=== PATIENT | male | born 1955 | race Caucasian/White ===

== ENCOUNTER 2025-02-25 10:45 | Emergency (ER) | payer MEDICARE, BC, SELFPAY ==
--- NOTE | ~2025-02-25 | US_ITS ---
EXAMINATION:US venous doppler LE LT INDICATION:History of DVT. TECHNIQUE: Multiple grayscale, color flow and Doppler images of the left lower extremity deep venous systems were obtained and reviewed. COMPARISON:No prior studies for comparison. FINDINGS: The common femoral, superficial femoral and popliteal veins demonstrate normal respiratory variation, augmentation and compressibility. Color flow is also seen within the posterior tibial, pe roneal, greater saphenous and profunda veins. IMPRESSION: 1: No lower extremity deep venous thrombosis. Reviewed, dictated and finalized at location A.
[2025-02-25 10:47] VITALS: BP 120/70; PULSE 71; RESP 16; TEMP 36.6; O2SAT 99
--- OUTSIDE RECORDS SUMMARY | 2025-02-25 12:09 | XMS_ITS | Clinical Summary ---
Author Organization [facility] Address [address] [place] [address] Phone Care Team Providers Care Podiatric Surgeon Name Role Phone Marcello Reyes MD Primary Care Provider [phone] Allergies Active Allergy Reactions Criticality Noted Date Comments Phenergan Plain 05/22/2012 Other reaction(s): Other (See Comments) Promethazine 10/19/2006 Other reaction(s): Myalgia, Other achy Other reaction(s): Myalgia achiness achiness Medications esomeprazole (NexIUM) 40 mg capsule daily. 4 Active ferrous sulfate 325 mg (65 mg iron) tablet Prn 4 Active multivitamin (THERAGRAN) tablet tablet Take 1 tablet by mouth daily. Active Stelara injection 1 Active insulin syringe-needle U-100 (BD Insulin Syringe) 1 mL 25 gauge x 5/8 syringe USE ONE MONTHLY FOR SUBCUTANEOUS VITAMIN B12 INJECTIONS 0 Active predniSONE (DELTASONE) 10 mg tablet 1 Active cyanocobalamin 1,000 mcg/mL injection Inject 1,000 mcg under the skin. 1 Active ondansetron (ZOFRAN) 4 mg tablet Take 4 mg by mouth every 6 (six) hours as needed. 1 Active levothyroxine (SYNTHROID) 25 mcg tablet Take 1 tablet (25 mcg total) by mouth daily. 3 Active amoxicillin-pot clavulanate (AUGMENTIN) 875-125 mg per tablet TAKE 1 TAB BY MOUTH TWICE DAILY X1 WEEK FOR SINUSITIS 3 Active cefuroxime (CEFTIN) 250 mg tablet Take 1 tablet (250 mg total) by mouth. 3 Active omega-3 fatty acids-fish oil 340-1,000 mg capsule Take 1 capsule by mouth 2 times daily. Active co-enzyme Q-10 30 mg capsule Take 3 capsules (90 mg total) by mouth daily. Active olmesartan (BENICAR) 20 mg tablet Take 1 tablet (20 mg total) by mouth. 5 Active Active Problems Problem Noted Date Diagnosed Date Pterygium of both eyes 09/05/2024 Assessment & Plan (09/05/2024 2:40 PM PST): Recommend UV protection with sunglasses and hat outdoors, lubrication PRN irritation, and avoidance of wind and dust to prevent progression. MGD (meibomian gland disease) 09/05/2024 Assessment & Plan (09/05/2024 2:42 PM PST): Symptomatic with intermittent blurry vision improved with blinking. Start artificial tears 2-4x/day for both eyes. Discussed warm compresses and lid hygiene. Return in 1 year CEX. Gastroenteritis 07/28/2021 Nuclear sclerosis of both eyes 06/11/2020 Assessment & Plan (09/05/2024 2:40 PM PST): Mild. UV protection outdoors. Advised to observe the cataract until it starts to affect vision to a degree that it affects day to day functioning. Assessment & Plan (07/18/2023 3:03 PM PST): Observe. Pt educated on importance of sunglass wear when outdoors. RTC 1yr CEX Assessment & Plan (06/11/2021 11:41 AM PDT): Observe. Pt educated on importance of sunglass wear when outdoors. RTC 1yr CEX Assessment & Plan (06/11/2020 3:58 PM PST): Observe. Pt educated on importance of sunglass wear when outdoors. RTC 1yr CEX Astigmatism with presbyopia, bilateral 0 Assessment & Plan (09/05/2024 2:35 PM PST): Stable. Assessment & Plan (07/18/2023 3:03 PM PST): Pt given updated spec Rx. Pt educated on 2w adaptation period. RTC 1yr CEX Assessment & Plan (09/07/2021 11:59 AM PST): Pt given updated Rx. 's redo. Pt advised to wear specs full-time for 2w for adaptation. RTC if symptoms worsen or do not resolve. Lowering seg height and changing left eye astigmatism back to original Assessment & Plan (06/11/2021 11:41 AM PDT): Pt given updated spec Rx. Pt educated on 2w adaptation period. RTC 1yr CEX Assessment & Plan (06/11/2020 3:58 PM PST): Pt given updated spec Rx. Pt educated on 2w adaptation period. RTC 1yr CEX Gastroesophageal reflux disease 08/13/2013 Crohn's disease 08/09/2004 Overview (06/11/2020): Present for many years- is status post loop ileostomy. On Remicade for treatment- sees Gastroenterology in [facility]. Diagnosed since 1973.Duodenal resection for portal hypertensive enteropathy in 1979, ileal resection, small bowel strictureplasty for obstruction in 1989, lysis of adhesions and loop ileostomy for ileal stricture in 2000. The ileal stricture was not resected due to bleeding due to portal hypertensive enteropathy. Small bowel resection at the site of ileostomy and separate terminal ileal resection, plus right colon resection with an ileotransverse colostomy and creation of a new diverting loop ileostomy by Dr. Miky Fletcher in January 2008 was done at the [facility]. He had a total of 86.8 cm of small bowel removed. Reversal of the loop ileostomy was done in April 2009, with an additional 4 cm of small bowel resected, for a total of 90.8 cm of small bowel resected. Medication Hx: prednisone, 6-mercaptopurine (d'c'd due to leukopenia), Remicade (2001, 5mg/kg every eight weeks) Has problems with bacterial overgrowth, on rotating antibiotics for the past two years including Bactrim, tetracycline, Cipro, and Flagyl, rotating every week. Last colonoscopy was in September 2008 which showed anastomosis in the colon with only a single ulcer in the ileum, otherwise without any active disease. Last Assessment & Plan: Endoscopic and clinical remission on Remicade on a rotational antibiotics course small bowel bacteria overgrowth. Continue Remicade 5 mg/kilogram every 8 weeks. Discontinue Flagyl, continue three-week rotation of Bactrim DS, Cipro, and tetracycline. Begin trial of VSL#3. Continue Nexium continue weekly B12 injections. Routine followup in 6 months. IMO Update Encounters Date Type Department Care Team Description 12/11/2024 11:15 AM PDT Office Visit [facility] [address] [place] [phone] Mauri Vogel, Intervertebral disc disorder with radiculopathy of lumbosacral region (Primary Dx); Spondylosis of lumbar spine; Spondylosis of cervical spine; Degeneration of intervertebral disc of lumbar region with lower extremity pain from Last 3 Months Immunizations Immunization Administration Dates Next Due H1N1 Inj 07/16/2009 Influenza High Dose Preserva tive Free IM 05/17/2021 Influenza TIV (IM) 08/16/2013, 4,07/16/2009,06/04 Influenza, Injectable, 0.7 m l, Quadrivalent, PF 06/21/2022,05/17/2021 Influenza, Injectable, Quadr ivalent, Preservative Free 06/22/2020,06/06/2016 Pneumococcal Polysaccharide 07/14/2008 RSV Vaccine,recombinant,prot ein subunit(Arexvy) 08/01/2023 TD (Adult) Adsorbed, Preservative Free 9 Tdap 09/29/2022 Social History Tobacco Use Types Packs/Day Years Used Date Smoking Tobacco: Never Passive Smoke Exposure: Never Smokeless Tobacco: Never Tobacco Cessation:Counseling Given: Yes Alcohol Use Standard Drinks/Week Comments Yes 0 (1 standard drink = 0.6 oz pur e alcohol) Sex and Gender Information Value Date Recorded Sex Assigned at Not on file Legal Sex Male 10:32 AM PDT Gender Identity Not on file Sexual Orientation Not on file Last Filed Vital Signs Vital Sign Reading Time Taken Comments Blood Pressure - - Pulse - - Temperature - - Respiratory Rate - - Oxygen Saturation - - Inhaled Oxygen Concentration - - Weight 82.1 kg (181 lb) 12/11/2024 11:04 AM PDT Height 175.3 cm (5' 9) 12/11/2024 11:04 AM PDT Body Mass Index 26.73 12/11/2024 11:04 AM PDT Plan of Treatment Upcoming Encounters Date Type Department Care Team (Late st Contact Info) Description 09/11/2025 8:40 AM PST Office Visit [facility] [place] [address] [place] [address] [place] [phone] Tomas Jordan MD [address] [address] Health Maintenance Due Date Last Done Comments Annual Wellness Visit (AWV) for Medicare Part B or Non [employer] Advantage 1955 Hepatitis C Screening 1955 Zoster Vaccines (1 of 2) 12/18/1974 COVID-19 Vaccine (3 - season) 2024 06/15/2021, 11/12/2020 Influenza Vaccine (#1) 2025 , 05/17/2024, 06/21/2022, Additional history exists DTaP,Tdap,and Td Vaccines (2 - Td or Tdap) 09/29/2032 09/29/2022, 06/19/2009 Pneumococcal Vaccine: 65+ Years Completed 07/26/2021, 07/14/2008 HIB Vaccines Aged Out No longer eligi ble based on patient's age to complete this topic Hepatitis A Vaccines Aged Out No long er eligible based on patient's age to complete this topic Meningococcal ACWY Vaccine Aged Out N o longer eligible based on patient's age to complete this topic Meningococcal B Vaccine Aged Out No l onger eligible based on patient's age to complete this topic Polio Vaccines Aged Out No longer rohith gible based on patient's age to complete this topic Insurance ANTH [employer] VISION SERVICE PLAN MEDICARE PART A AND B [facility] P[facility] MEDICARE PART A AND B [facility] AN[facility] [employer] VISION SERVICE PLAN MEDICARE PART A AND B ANTH [facility]ISION C[facility] Care Teams Podiatric Surgeon Relationship Specialty Start Date End Date Marcello Reyes MD [address] [facility] [address] [id number] PCP - General Internal Medicine 07/18/23
--- OUTSIDE RECORDS SUMMARY | 2025-02-25 12:09 | XMS_ITS | Data Portability ---
Author Organization Kash Holloway, Main Office Address [address] [facility] [address] [place] [address] Assessment No assessment recorded. Plan of Treatment Reminders Order Date Submit Date Provider Last Modified By Organization Details Last Modified Time Details Appointments ANY 15 2024 09:45A M Kash Wills MD Not available Not available Not available Follow up 2024 10:30A M Kash Wills MD Not available Not available Not available Lab None recorded. Referral None recorded. Procedures None recorded. Surgeries None recorded. Imaging None recorded. Medication Orders Zanaflex 4 mg tablet 2024 025 [email or web address] [id number], [address] [place], [address], 01/17/2025 11:32:42 nystatin 100,000 unit/mL oral suspensio n 2024 025 LETTY [id number], [address] [place], [address], 12/05/2024 13:07:16 Patient TargetsNo targets recorded. Patient InstructionsNo instructions recorded. Reason for Referral None Reported. Results Created Date Observation Date Name Description Value Unit Range Abnormal Flag Note LastModifiedBy Organization Detail LastModifiedTime 11/29/1911/28/2024 CBC WBC 7.8 K/uL 5.0-9. 5 Not Available [facility] [address] [facility], [place], [address], 11/29/2024 20:37:53 11/29/1911/28/2024 CBC RBC 4.17 M/uL 3.70-5 .50 Not Available [address], [place], [address], 11/29/2024 20:37:53 11/29/19 25 11/28/2024 CBC HGB 14.2 gm/dL 13.0-1 7.0 Not Available [address], [address], 11/29/2024 20:37:53 11/29/19 25 11/28/2024 CBC HCT 41.8 % 38.0-5 0.0 Not Available [address], [address], 11/29/2024 20:37:53 11/29/19 25 11/28/2024 CBC MCV 100.3 fL 80.0-9 9.0 high Not Available [address], [place], [address], 11/29/2024 20:37:53 11/29/19 25 11/28/2024 CBC MCH 34.1 pg 27.0-3 3.0 high Not Available [address], [address], 11/29/2024 20:37:53 11/29/19 25 11/28/2024 CBC MCHC 34.0 gm/dL 31.8-3 6.2 Not Available [address], [address], 11/29/2024 20:37:53 11/29/1911/28/2024 CBC RDW 14.6 % 10.0-1 6.4 Not Available [address], [address], 11/29/2024 20:37:53 11/29/19 25 11/28/2024 CBC plt 142 K/uL 150-45 0 low Not Available [address], [place], [address], 11/29/2024 20:37:53 11/29/19 25 11/28/2024 CBC MPV 9.1 fL 7.5-10 .5 Not Available [address], [place], [address], 11/29/2024 20:37:53 11/29/1911/28/2024 CBC sex assigned at M Not Available [address], [place], [address], 11/29/2024 20:37:53 11/29/19 25 11/28/2024 AUTOD IFF* auto neutrophil percent 72.3 % 49.4-7 2.6 Not Available [address], [place], [address], 11/29/2024 20:37:54 11/29/19 25 11/28/2024 AUTOD IFF* auto neutrophil absolute 5.7 K/uL 2.0-6. 4 Not Available [address], [place], [address], 11/29/2024 20:37:54 11/29/1911/28/2024 AUTOD IFF* auto lymphocyte percent 18.4 % 18.0-4 0.0 Not Available [address], [place], [address], 11/29/2024 20:37:54 11/29/19 25 11/28/2024 AUTOD IFF* auto lymphocyte absolute 1.4 K/uL 1.5-3. 0 low Not Available [address], [place], [address], 11/29/2024 20:37:54 11/29/19 25 11/28/2024 AUTOD IFF* auto monocyte percent 8.5 % 4.9-10 .1 Not Available [address], [place], [address], 11/29/2024 20:37:54 11/29/19 25 11/28/2024 AUTOD IFF* auto monocyte absolute 0.7 K/uL 0.3-0. 8 Not Available [address], [place], [address], 11/29/2024 20:37:54 11/29/19 25 11/28/2024 AUTOD IFF* auto eosinophil percent 0.6 % 0.0-5. 0 Not Available [address], [place], [address], 11/29/2024 20:37:54 11/29/19 25 11/28/2024 AUTOD IFF* auto eosinophil absolute 0.0 K/uL 0.0-0. 4 Not Available [address], [place], [address], 11/29/2024 20:37:54 11/29/19 25 11/28/2024 AUTOD IFF* auto basophil percent 0.2 % 0.2-1. 2 Not Available [address] [place], [address], 11/29/2024 20:37:54 11/29/19 25 11/28/2024 AUTOD IFF* auto basophil absolute 0.0 K/uL 0.0-0. 1 Not Available [address] [place], [address], 11/29/2024 20:37:54 11/29/19 25 11/28/2024 AUTOD IFF* sex assigned at M Not Available [address], [place], [address], 11/29/2024 20:37:54 11/29/19 25 11/28/2024 CMP sodium level 140 mmol/ L 134-14 3 Not Available [address], [place], [address], 11/29/2024 20:37:54 11/29/19 25 11/28/2024 CMP potassium level 4.3 mmol/ L 3.5-5. 1 Not Available [address], [place], [address], 11/29/2024 20:37:54 11/29/19 25 11/28/2024 CMP chloride level 105 mmol/ L 101-11 1 Not Available [address], [place], [address], 11/29/2024 20:37:54 11/29/19 25 11/28/2024 CMP CO2/carbon dioxide 28 mmol/ L 22-32 Not Available [address], [place], [address], 11/29/2024 20:37:54 11/29/19 25 11/28/2024 CMP anion gap 7 mmol/ L 11-22 low Not Available [address], [place], [address], 11/29/2024 20:37:54 11/29/19 25 11/28/2024 CMP glucose, random 90 mg/dL 70-140 Not Available [address], [place], [address], 11/29/2024 20:37:54 11/29/19 25 11/28/2024 CMP BUN 25 mg/dL 4-20 high Not Available [address], [place], [address], 11/29/2024 20:37:54 11/29/19 25 11/28/2024 CMP creatinine 1.2 mg/dL 0.7-1. 3 Not Available [address], [place], [address], 11/29/2024 20:37:54 11/29/19 25 11/28/2024 CMP BUN/creat ratio 21 12-20 high Not Available [address], [place], [address], 11/29/2024 20:37:54 11/29/19 25 11/28/2024 CMP osmolality, calculated 294 mOsm/ kg 278-29 8 Not Available [address], [place], [address], 11/29/2024 20:37:54 11/29/19 25 11/28/2024 CMP calcium level 9.1 mg/dL 8.3-10 .3 Not Available [address], [place], [address], 11/29/2024 20:37:54 11/29/19 25 11/28/2024 CMP total protein 6.3 gm/dL 6.4-8. 9 low Not Available [address], [place], [address], 11/29/2024 20:37:54 11/29/19 25 11/28/2024 CMP albumin level 4.3 gm/dL 3.5-5. 3 Not Available [address], [place], [address], 11/29/2024 20:37:54 11/29/19 25 11/28/2024 CMP globulin level 2.0 gm/dL 2.3-3. 5 low Not Available [address], [place], [address], 11/29/2024 20:37:54 11/29/19 25 11/28/2024 CMP A/G ratio 2.2 0.7-2. 2 Not Available [address], [place], [address], 11/29/2024 20:37:54 11/29/19 25 11/28/2024 CMP ALP 40 intun it/L 56-119 low Not Available [address], [place], [address], 11/29/2024 20:37:54 11/29/19 25 11/28/2024 CMP ALT 22 intun it/L 7-52 Not Available [address], [place], [address], 11/29/2024 20:37:54 11/29/19 25 11/28/2024 CMP AST 16 intun it/L 10-39 Not Available [address], [place], [address], 11/29/2024 20:37:54 11/29/19 25 11/28/2024 CMP bilirubin, total 0.7 mg/dL 0.3-1. 2 Not Available [address], [place], [address], 11/29/2024 20:37:54 11/29/19 25 11/28/2024 CMP eGFR 63 mL/mi n/1.7 3m2 This eGFR equat ion utili zes the 2020 CKD-E PI creat inine equat ion. Stage s GFR None or sligh t 1 >90 ml/mi n Mild 2 60-89 ml/mi n Moder ate 3 30-59 ml/mi n Sever e 4 15-29 ml/mi n Appro achin g Failu re 5 <15 ml/mi n Not Available [address], [place], [address], 11/29/2024 20:37:54 11/29/19 25 11/28/2024 CMP sex assigned at M Not Available [place] [id number], [place], [address], 11/29/2024 20:37:54 11/29/19 25 11/28/2024 LIPID P total cholesterol 228 mg/dL 00-199 high Not Available [address], [place], [address], 11/29/2024 20:37:55 11/29/19 25 11/28/2024 LIPID P triglyceride s 169 mg/dL 0-149 high Not Available [address], [place], [address], 11/29/2024 20:37:55 11/29/19 25 11/28/2024 LIPID P HDL cholesterol 69 mg/dL 23-92 Not Available [address], [place], [address], 11/29/2024 20:37:55 11/29/19 25 11/28/2024 LIPID P LDL cholesterol, calc 125 mg/dL 0-99 high Not Available [address], [place], [address], 11/29/2024 20:37:55 11/29/19 25 11/28/2024 LIPID P total chol/HDL ratio 3.3 Not Available [address], [place], [address], 11/29/2024 20:37:55 11/29/19 25 11/28/2024 LIPID P LDL/HDL ratio 1.8 Not Available [address], [place], [address], 11/29/2024 20:37:55 11/29/19 25 11/28/2024 LIPID P sex assigned at M Not Available [address], [address], 11/29/2024 20:37:55 11/29/19 25 11/28/2024 LIPID P VLDL cholesterol, calc 34 mg/dL 0-40 Not Available [address], [address], 11/29/2024 20:37:55 11/29/19 25 11/28/2024 MIGUEL TIN ferritin level 99.7 NG/mL 14.0-2 93.0 Not Available [address], [address], 11/29/2024 20:37:55 11/29/19 25 11/28/2024 MIGUEL TIN sex assigned at M Not Available [address], [address], 11/29/2024 20:37:55 11/29/1911/28/2024 FOLAT E folate level 15.9 NG/mL 3.0-14 .4 high Folat e range s are as liste d below : Julianne l > 3.0 ng/mL Inter media te 2.5-3 .0 ng/mL Defic ient < 2.5 ng/mL Not Available [address], [address], 11/29/2024 20:37:55 11/29/1911/28/2024 FOLAT E sex assigned at M Not Available [address], [address], 11/29/2024 20:37:55 11/29/19 25 11/28/2024 VITB1 2 vitamin B12 level 343 pg/mL 180-91 4 Not Available [address], [address], 11/29/2024 20:37:56 11/29/19 25 11/28/2024 VITB1 2 sex assigned at M Not Available [address], [address], 11/29/2024 20:37:56 11/29/19 25 11/28/2024 TSH3 TSH thyroid stim hormone 3rd generation 2.19 uint_ unit/ mL 0.45-5 .33 Not Available [address], [address], 11/29/2024 20:37:56 11/29/19 25 11/28/2024 TSH3 sex assigned at M Not Available [address], [address], 11/29/2024 20:37:56 11/29/19 25 11/28/2024 PSAA SCRN PSA prostatic specific antigen screen 0.79 NG/mL 0.01-4 .00 The metho dolog y used for this assay is the [employer] s Hybri tech PSA immun oassa y. Not Available [address], [address], 11/29/2024 20:37:57 11/29/19 25 11/28/2024 PSAA SCRN sex assigned at M Not Available [address], [address], 11/29/2024 20:37:57 11/29/19 25 11/28/2024 VITD2 5 vitamin D, 25-hydroxy 36.0 NG/mL >=30.0 RESUL T INTER PRETA TION <20 ng/mL Defic ient 20-30 ng/mL Inade quate >30 ng/mL Adequ ate >150 ng/mL Possi ble Toxic ity >20 ng/mL Pedia tric Adequ ate (1-17 yrs) Not Available [address], [place], [address], 11/29/2024 20:37:57 11/29/19 25 11/28/2024 VITD2 5 sex assigned at M Not Available [address] [place], [address], 11/29/2024 20:37:57 01/07/20 25 01/06/2025 HGM WBC 5.1 K/uL 5.0-9. 5 Not Available [address], [place], [address], 01/07/2025 22:29:52 01/07/20 25 01/06/2025 HGM RBC 4.00 M/uL 3.70-5 .50 Not Available [address], [place], [address], 01/07/2025 22:29:52 01/07/2001/06/2025 HGM HGB 13.2 gm/dL 13.0-1 7.0 Not Available [address], [place], [address], 01/07/2025 22:29:52 01/07/2001/06/2025 HGM HCT 39.1 % 38.0-5 0.0 Not Available [address], [place], [address], 01/07/2025 22:29:52 01/07/2001/06/2025 HGM MCV 97.6 fL 80.0-9 9.0 Not Available [address], [place], [address], 01/07/2025 22:29:52 01/07/20 25 01/06/2025 HGM MCH 32.9 pg 27.0-3 3.0 Not Available [address], [place], [address], 01/07/2025 22:29:52 01/07/20 25 01/06/2025 HGM MCHC 33.7 gm/dL 31.8-3 6.2 Not Available [address], [place], [address], 01/07/2025 22:29:52 01/07/20 25 01/06/2025 HGM RDW 14.7 % 10.0-1 6.4 Not Available [address], [place], [address], 01/07/2025 22:29:52 01/07/20 25 01/06/2025 HGM plt 167 K/uL 150-45 0 Not Available [address], [place], [address], 01/07/2025 22:29:52 01/07/20 25 01/06/2025 HGM MPV 9.1 fL 7.5-10 .5 Not Available [address], [place], [address], 01/07/2025 22:29:52 01/07/20 25 01/06/2025 HGM sex assigned at M Not Available [address], [place], [address], 01/07/2025 22:29:52 01/07/20 25 01/06/2025 CMP sodium level 139 mmol/ L 134-14 3 Not Available [address], [place], [address], 01/07/2025 22:29:53 01/07/20 25 01/06/2025 CMP potassium level 4.7 mmol/ L 3.5-5. 1 Not Available [address] [place], [address], 01/07/2025 22:29:53 01/07/20 25 01/06/2025 CMP chloride level 103 mmol/ L 101-11 1 Not Available [address] [place], [address], 01/07/2025 22:29:53 01/07/20 25 01/06/2025 CMP CO2/carbon dioxide 30 mmol/ L 22-32 Not Available [address], [place], [address], 01/07/2025 22:29:53 01/07/20 25 01/06/2025 CMP anion gap 6 mmol/ L 11-22 low Not Available [address], [place], [address], 01/07/2025 22:29:53 01/07/20 25 01/06/2025 CMP glucose, random 82 mg/dL 70-140 Not Available [address], [place], [address], 01/07/2025 22:29:53 01/07/20 25 01/06/2025 CMP BUN 14 mg/dL 4-20 Not Available [address], [place], [address], 01/07/2025 22:29:53 01/07/20 25 01/06/2025 CMP creatinine 1.3 mg/dL 0.7-1. 3 Not Available [address], [place], [address], 01/07/2025 22:29:53 01/07/20 25 01/06/2025 CMP BUN/creat ratio 11 12-20 low Not Available [address], [place], [address], 01/07/2025 22:29:53 01/07/20 25 01/06/2025 CMP osmolality, calculated 288 mOsm/ kg 278-29 8 Not Available [address], [place], [address], 01/07/2025 22:29:53 01/07/20 25 01/06/2025 CMP calcium level 9.3 mg/dL 8.3-10 .3 Not Available [address], [place], [address], 01/07/2025 22:29:53 01/07/20 25 01/06/2025 CMP total protein 6.0 gm/dL 6.4-8. 9 low Not Available [address], [place], [address], 01/07/2025 22:29:53 01/07/20 25 01/06/2025 CMP albumin level 4.1 gm/dL 3.5-5. 3 Not Available [address], [place], [address], 01/07/2025 22:29:53 01/07/20 25 01/06/2025 CMP globulin level 1.9 gm/dL 2.3-3. 5 low Not Available [address], [place], [address], 01/07/2025 22:29:53 01/07/20 25 01/06/2025 CMP A/G ratio 2.2 0.7-2. 2 Not Available [address], [place], [address], 01/07/2025 22:29:53 01/07/20 25 01/06/2025 CMP ALP 44 intun it/L 56-119 low Not Available [address], [place], [address], 01/07/2025 22:29:53 01/07/20 25 01/06/2025 CMP ALT 18 intun it/L 7-52 Not Available [address], [place], [address], 01/07/2025 22:29:53 01/07/20 25 01/06/2025 CMP AST 17 intun it/L 10-39 Not Available [address], [place], [address], 01/07/2025 22:29:53 01/07/20 25 01/06/2025 CMP bilirubin, total 0.6 mg/dL 0.3-1. 2 Not Available [address], [place], [address], 01/07/2025 22:29:53 01/07/20 25 01/06/2025 CMP eGFR 57 mL/mi n/1.7 3m2 This eGFR equat ion utili zes the 2020 CKD-E PI creat inine equat ion. Stage s GFR None or sligh t 1 >90 ml/mi n Mild 2 60-89 ml/mi n Moder ate 3 30-59 ml/mi n Sever e 4 15-29 ml/mi n Appro achin g Failu re 5 <15 ml/mi n Not Available [address], [place], [address], 01/07/2025 22:29:53 01/07/20 25 01/06/2025 CMP sex assigned at M Not Available [address], [place], [address], 01/07/2025 22:29:53 01/07/20 25 01/06/2025 LIPID P total cholesterol 202 mg/dL 00-199 high Not Available [address], [place], [address], 01/07/2025 22:29:53 01/07/20 25 01/06/2025 LIPID P triglyceride s 155 mg/dL 0-149 high Not Available [facility] [address], [place], [address], 01/07/2025 22:29:53 01/07/20 25 01/06/2025 LIPID P HDL cholesterol 56 mg/dL 23-92 Not Available [address], [place], [address], 01/07/2025 22:29:53 01/07/20 25 01/06/2025 LIPID P LDL cholesterol, calc 115 mg/dL 0-99 high Not Available [facility] [address], [place], [address], 01/07/2025 22:29:53 01/07/20 25 01/06/2025 LIPID P total chol/HDL ratio 3.6 Not Available [address], [place], [address], 01/07/2025 22:29:53 01/07/20 25 01/06/2025 LIPID P LDL/HDL ratio 2.0 Not Available [address], [place], [address], 01/07/2025 22:29:53 01/07/20 25 01/06/2025 LIPID P sex assigned at M Not Available [place] [address], [place], [address], 01/07/2025 22:29:53 01/07/20 25 01/06/2025 LIPID P VLDL cholesterol, calc 31 mg/dL 0-40 Not Available [address], [place], [address], 01/07/2025 22:29:53 01/07/20 25 01/06/2025 DOM LOPEZ cortisol, serum 5.4 6 a.m. - 10 a.m. refer ence inter v6 a.m. - 10 a.m. refer ence inter vipul: 6.0-1 8.4 ?g/dL 4 p.m. - 8 p.m. refer ence inter vipul: 2.7-1 0.5 ?g/dL Not Available [address] [place], [address], 01/07/2025 22:29:54 01/07/2001/06/2025 LIATYashira JESSICA sex assigned at M Not Available [address] [place], [address], 01/07/2025 22:29:54 12/17/19 25 11/29/2024 US, carowilliam id arter y No observ ation record ed. [email or web address] Not Available 2024 22:49:13 Result Notes None recorded. Problems Name Problem SNOMED Code Status Onset Date Resolution Date Notes Provider Name and Address Organization Details Recorded Time Iron deficienc y anemia 96796341 Active 2020 Iron deficienc y anemia Not Available [facility] 5 01:17:22 History of anemia vitamin B12 deficient 388149487 Active 2020 History of anemia vitamin B12 deficient Not Available [facility] 5 01:17:23 Thrombosi s of mesenteri c vein 59823467 Active 2020 Thrombosi s of mesenteri c vein Not Available [facility] 5 01:17:23 Squamous cell carcinoma of skin 492689007 Active 2020 Cutaneous squamous cell carcinoma Not Available [facility] 5 01:17:24 Hearing loss 97650374 Active 2020 Hearing impairmen t Not Available [facility] 5 01:17:25 Hiatal hernia with gastroeso phageal reflux 594127285 Active 2020 Hiatal hernia with gastroeso phageal reflux disease Not Available [facility] 5 01:17:26 Crohn's disease 92329670 Active 2020 Crohn's disease Not Available [facility] 5 01:17:26 History of anemia - iron deficient 635560816 Active 2020 History of iron deficienc y anemia Not Available [facility] 5 01:17:27 Angular cheilitis 200509882 Active 2020 Angular cheilitis Not Available [facility] 5 01:17:28 Chronic kidney disease stage 3A 381196784 Active 2020 ICD-10: N18.31 - Chronic kidney disease, stage 3a Not Available [facility] 5 01:17:24 Hyperhomo cysteinem ia 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 Active 2020 Hyperhomo cysteinem ia Not Available [facility] 5 01:17:24 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 Not Available [facility] 5 01:17:26 Mixed hyperlipi demia 509379782 Active 2020 Mixed hyperlipi demia Not Available [facility] 5 01:17:28 Disorder of carotid artery 141031335 Active 2020 Carotid artery disease Not Available [facility] 5 01:17:22 Kidney stone 14976695 Active 2020 Kidney stone Not Available [facility] 5 01:17:28 Thrombocy topenic disorder 173776982 Active 2020 Thrombocy topenia Not Available [facility] 5 01:17:23 Sciatica 17765412 Active 2020 Sciatica Not Available [facility] 5 01:17:27 Acute gastroent eritis 72261448 Active 2020 Acute gastroent eritis Not Available [facility] 5 09:14:00 Obstructi ve sleep apnea syndrome 58340469 Active 2021 Obstructi ve sleep apnea Not Available [facility] 5 01:17:23 Lumbar radiculop athy 155519013 Active 2021 Lumbar radiculop athy Not Available [facility] 5 01:17:22 Hypothyro idism 83970549 Active 2021 Hypothyro idism Not Available [facility] 5 01:17:25 Chronic kidney disease stage 2 083902239 Active 2022 Chronic kidney disease stage 2 Not Available [facility] 5 01:17:25 Common bile duct calculus 087714252 Active 2022 Common bile duct stone Not Available [facility] 5 01:17:22 Acute maxillary sinusitis 97618171 Active 2022 Acute maxillary sinusitis Not Available [facility] 5 09:14:02 Wheezing 33177924 Active 2024 Wheezing Not Available [facility] 5 01:17:26 Loose stool 358104157 Active 2024 Loose stools Not Available [facility] 5 09:14:00 Adult health examinati on Active 2024 ICD-10: Z00.00 - Routine general medical examinati on at a health care facility Not Available [facility] 5 09:14:04 Candidias is of mouth 18413260 Active 2024 Kash Wills MD [address], [place], [address] , [facility] 5 13:04:23 Strain of neck muscle 012936409 Active 2024 Kash Wills MD [address], [place], [address] , [place] Kash 5 13:09:41 Essential hypertens ion 50303213 Active 2024 Kash Wills MD [address], [place], [address] , [facility] 5 13:17:06 Problem Notes None recorded. Procedures Surgical History Date Name Laterality Status Provider Name and Address Organization Details Recorded Time 12/05/2024 VIP B-12 Inj completed Kash Wills MD [address], [place], [phone], [place] Kash 12/05/2024 13:04:14 Imaging Results None recorded. Procedure Notes None recorded. Medical Equipment None Reported. Allergies Allergen ID Allergen Name Allergen Category Reaction Reaction Severity Criticality Documentation Date Start Date Code Code System Note Provider Name and Address Organization Details Recorded Time 3352 promethaz [facility] medicatio n Not available Not available Not available 11/11/20242020 8745 RxNorm React ion: Agita tion, restl ess Kash Wills MD [address], [place], [phone], [place], Kash 12:48:02 Medications Name Sig Start Date Stop Date Status Note LastModified by Organization Details LastModified Time amoxicillin 500 mg capsule TAKE 4 CAPSULES BY MOUTH 1 HOUR PRIOR TO DENTAL APPOINTME NT active Not Available Not Available No t Available nystatin 100,000 unit/mL oral suspension SWISH AND SPIT 5 ML, RETAIN LONG POSSIBLE IN MOUTH (SEVERAL MINUTES) FOUR TIMES A DAY active Not Available Not Available No t Available prednisone 10 mg tablet TITRATE FROM 1 TAB BY MOUTH 3X TO 5X DAILY FOR CHROHN'S DISEASE active Not Available Not Available No t Available tizanidine 4 mg tablet TAKE 1 TABLET EVERY DAY BY ORAL ROUTE NEEDED. 2024 active Not Available Not Available Not Avai lable prednisone 20 mg tablet TAKE 2 TABLETS BY MOUTH IN THE MORNING active Not Available Not Available No t Available fluorouraci l 5 % topical cream PLEASE SEE ATTACHED FOR DETAILED DIRECTION S active Not Available Not Available No t Available acetaminoph en 300 mg-codeine 30 mg tablet TAKE 1 TABLET BY MOUTH EVERY 6 HOURS NEEDED FOR PAIN active Not Available Not Available No t Available levothyroxi ne 25 mcg tablet TAKE 1 TABLET BY MOUTH EVERY DAY FOR HYPOTHYRO IDISM active Not Available Not Available No t Available Imodium A-D 2 mg tablet 2024 active Not Available Not Available Not Avai lable esomeprazol e magnesium 40 mg capsule,del ayed release TAKE 2 CAPSULES BY MOUTH EVERY DAY active Not Available Not Available No t Available cefuroxime axetil 500 mg tablet TAKE 1 TABLET BY MOUTH TWICE DAILY FOR SINUSITIS 12/05 completed Not Available Not Available Not Available doxycycline hyclate 100 mg tablet TAKE 1 TABLET BY MOUTH TWICE A DAY 12/05 completed Not Available Not Available Not Available olmesartan 20 mg tablet TAKE 1 TABLET BY MOUTH EVERY DAY active Not Available Not Available No t Available Mucinex 600 mg tablet, extended release 2023 active Not Available Not Available Not Avai lable Saccharomyc es boulardii 250 mg capsule Take 1 capsule every day by oral route. active Not Available Not Available No t Available cholecalcif fernanda (vitamin D3) 250 mcg (10,000 unit) capsule 2021 active Not Available Not Available Not Avai lable Co Q-10 1 tab daily active Not Available Not Available No t Available Vitamin B12 1 tab daily active Not Available Not Available No t Available potassium citrate ER 15 mEq (1,620 mg) tablet,exte nded release TAKE 2 TABLETS (30 MEQ TOTAL) BY MOUTH 2 (TWO) TIMES A DAY WITH MEALS. active Not Available Not Available No t Available Stelara 90 mg/mL subcutaneou s syringe 90 mg Sq injection every 12 weeks active Not Available Not Available No t Available L-Methylfol ate 1 tab daily active Not Available Not Available No t Available Vitron-C 65 mg iron-125 mg tablet,soheila yed release 2020 active Not Available Not Available Not Avai lable Injectafer 50 mg iron/mL intravenous solution 2021 active Not Available Not Available Not Avai lable Fish Oil 1,200 mg (144 mg-216 mg) capsule Take 1 capsule every day by oral route. active Not Available Not Available No t Available Vitals Date Recorded Body height Body mass index (BMI) Body weight Oxygen saturation Oxygen saturation in Arterial blood by Pulse oximetry Body temperature Heart rate Systolic And Diastolic Provider Name and Address Organization Details Last Updated DateTime 5 165.1 cm 29.8 kg/m2 44397.7 5 g 98 % 98 % 97.5 [degF] 69 /min 120/82 mm[Hg] Kash Anaya 5 12:36:18 Date Recorded Body height Body mass index (BMI) Body weight Body temperature Oxygen saturation Oxygen saturation in Arterial blood by Pulse oximetry Heart rate Systolic And Diastolic Provider Name and Address Organization Details Last Updated DateTime 5 165.1 cm 29.2 kg/m2 42585.1 g 97.2 [degF] 96 % 96 % 69 /min 102/70 mm[Hg] Kash Anaya 5 12:41:20 Social History Question Answer Notes LastModified by [email or web address] Details LastModified Time Tobacco Smoking Status Never Smoker Not Available [facility] 11/11/2024 00:50:47 What Is Your Level Of Caffeine Consumption? Moderate [email or web address] Information not available 12/22/2024 Have You Ever Been Counseled For Unhealthy Alcohol Use? No [email or web address] Information not available 12/22/2024 How Many Days In The Past Year Have You Consumed 5 Or More Drinks? 0 [email or web address] Information not available 12/22/2024 Sex: Unknown Functional Status Question Answer Note LastModified by [email or web address] Details LastModified Time How many times per week do you consume alcohol? 1-2 times per week [email or web address] Information not available 12/22/2024 Do you use any illicit or recreational drugs? No Information not available 12/22/2024 Do you or have you ever used any other forms of tobacco or nicotine? No [email or web address] Information not available 12/22/2024 What is your level of alcohol consumption? Occasional [email or web address] Information not available 12/22/2024 Mental Status None recorded. Family History Nothing Reported. Medical History No medical history recorded. Immunizations Vaccine Type Date Status Note Provider Nam e and Address Organization Details Recorded Time Pneumococcal conjugate PCV20, polysaccharide UUD819 conjugate, adjuvant, PF 1 completed Not Available [facility] 11/11/2024 01:19:07 Influenza, high-dose, trivalent, PF 2 completed Not Available [facility] 01/09/2025 15:21:13 Influenza, adjuvanted, quadrivalent, PF 3 completed Not Available [facility] 11/11/2024 01:19:07 Tdap 3 completed Not Available [facility] 01/09/2025 15:21:13 Influenza, split virus, trivalent, preservative 4 completed Not Available [facility] 01/09/2025 15:21:13 zoster recombinant 3 completed Not Available [facility] 11/11/2024 01:19:07 zoster recombinant 3 completed Not Available [facility] 11/11/2024 01:19:07 Past Encounters Encounter ID Performer Location Encounter Start Date Encounter Closed Date Diagnosis/Indication Diagnosis SNOMED-CT Code Diagnosis ICD10 Code Diagnosis Note [id number] Kash Wills MD Main Office [address] [place] [address] 12/02/2024 19:07:03 12/06/2024 15:56:13 [id number] Kash Wills MD Main Office [address] [place] [address] 12/05/2024 12:29:47 12/05/2024 13:45:55 Chronic kidney disease stage 3A 671025045 N18.31 Advised to increase fluid intake, avoid nephrotoxi c medication s including NSAID's. Hypothyroidism 96434812 E03.9 Stable, continue on current medication Mixed hyperlipidemia 267 926603 E78.2 Stable, continue on current medication History of anemia vitamin B12 deficient 352027247 Z86.2 Vit b12 injection given in the office. Candidiasis of mouth 797 11544 B37.0 Follow up if not improved. [id number] Kash Wills MD Main Office [address] [place] [address] 12/23/2024 12:33:43 12/25/2024 23:01:37 Strain of neck muscle 876886350 S16.1XXA Will use muscle relaxer as needed to help with neck pain/heada ches. Candidiasis of mouth 797 89214 B37.0 Follow up if not improved. Following up with dentist, symptoms began after extensive dental procedure. Essential hypertension 94141451 I10 Stable, continue on current medication Chronic ki dney disease stage 3A 290158365 N18.31 Advised to increase fluid intake, avoid nephrotoxi c medication s including NSAID's. Health Concerns Section Related Observation LastModified by Organization Detai ls LastModified Time None Recorded Concern Status LastModified by Organization Details LastModified Time None Recorded Advance Directives Directive None Recorded Payers Insurance Date Sequence Insurance Name Policy Number Policy Vidal Covered Member ID Vidal Member ID Guarantor Name 12/26/2024 2 [place] SENIOR CLASSIC F (MEDICARE SUPPLEMENT) Robert Brown [id number] Robert Brown 12/05/2024 1 [place] Patsy Brown [id number] Robert Brown Notes Date Note Type Note Provider Name and Address Organization Details Recorded Time 12/05/2024 text/html Patient presents for an acute visit with complaint of white growth on the right side of his tongue. About 12 days ago had extensive dental work done and tooth extraction about a week ago. Did also have a recent Crohn's flareup and had to use prednisone which she is tapering off of right now. Patient is also here for follow-up on his blood work. He has a history of hypothyroidism, CKD stage III history of anemia and vitamin B12 deficiency for which he would like his B12 injection today. Is wondering if his cortisol levels are abnormal. Will let me know if his symptoms do not improve, we can check a.m. cortisol level for him once he is off the prednisone for a couple weeks Kash Wills MD [address], [place], [address], Kash Holloway 12/05/2024 13:08:52 12/23/2024 text/html Patient with history of CKD stage 3A, htn, recent suspected oral thrush after extensive dental procedure. Has been using oral rinse with nystatin. Reports about 50% improvement but not resolved. Has very distinct margins and has follow up with dentist to review the issue. Also reports strain in his neck muscle with headaches secondary due to it. Is also here to follow up on his CIMT study. Would like to check his cortisol levels as he has taken prednisone multiple times and recently due to Crohn's flare up. Kash Wills MD [address], [place], [address], Kash Holloway 12/25/2024 22:56:27
--- OUTSIDE RECORDS SUMMARY | 2025-02-25 12:10 | XMS_ITS | Encounter Summary ---
Author Organization [facility] Address [address] [place] [address] Phone Care Team Providers Care Wire Mesh Filter Fabricator Name Role Phone Marcello Reyes MD Primary Care Provider [phone] Encounter Details Date Type Department Care Team (Late Contact Info) Description 10/28/2024 Auto-released orders [facility] [address] [place] [address] Mauri Vogel DO [address] [place], [place] [phone] Spondylosis of cervical spine; Spinal stenosis, cervical region Social History Tobacco Use Types Packs/Day Years Used Date Smoking Tobacco: Never Passive Smoke Exposure: Never Smokeless Tobacco: Never Alcohol Use Standard Drinks/Week Comments Yes 0 (1 standard drink = 0.6 oz pur e alcohol) Sex and Gender Information Value Date Recorded Sex Assigned at Not on file Legal Sex Male 10:32 AM PDT Gender Identity Not on file Sexual Orientation Not on file documented as of this encounter Plan of Treatment Upcoming Encounters Date Type Department Care Team (Late st Contact Info) Description 09/11/2025 8:40 AM PST Office Visit [facility] [place] [address] [place] [address] Tomas Jordan MD [address] [place] [address] documented as of this encounter Visit Diagnoses Diagnosis Spondylosis of cervical spine Spinal stenosis, cervical region documented in this encounter Care Teams Wire Mesh Filter Fabricator Relationship Specialty Start Date End Date Marcello Reyes MD [address] [place] [phone] PCP - General Internal Medicine 07/18/23 documented as of this encounter
--- OUTSIDE RECORDS SUMMARY | 2025-02-25 12:10 | XMS_ITS | Encounter Summary ---
Author Organization [facility] Address [address] [place] [address] Phone Care Team Providers Care Hop Grower Name Role Phone Marcello Reyes MD Primary Care Provider [phone] Encounter Details Date Type Department Care Team (Late Contact Info) Description 03/01/2018 Conversion Encounter [facility] [address] [place] [address] Eric Joe MD [address] [place] [address] Social History Tobacco Use Types Packs/Day Years Used Date Smoking Tobacco: Never Assessed Sex and Gender Information Value Date Recorded Sex Assigned at Not on file Legal Sex Male 10:32 AM PDT Gender Identity Not on file Sexual Orientation Not on file documented as of this encounter Plan of Treatment Upcoming Encounters Date Type Department Care Team (Late st Contact Info) Description 09/11/2025 8:40 AM PST Office Visit [facility] [place] [facility] [address] [place] [address] Tomas Jordan MD [address] [facility] [place] [address] documented as of this encounter Visit Diagnoses Not on filedocumented in this encounter Care Teams Hop Grower Relationship Specialty Start Date End Date Marcello Reyes MD [address] [place] [address] PCP - General Internal Medicine 07/18/23 documented as of this encounter
--- OUTSIDE RECORDS SUMMARY | 2025-02-25 12:10 | XMS_ITS | Encounter Summary ---
Author Organization [facility] Address [address] [place] [address] Phone Care Team Providers Care Fisher Lobster Name Role Phone Marcello Reyes MD Primary Care Provider [phone] Encounter Details Date Type Department Care Team (Late st Contact Info) Description 09/11/2023 Auto-released orders [facility] [address] [place] [address] Mauri Vogel DO [address] [place], [place] [phone] Intervertebral disc disorder with radiculopathy of lumbosacral region; Spondylosis of lumbar spine Social History Tobacco Use Types Packs/Day Years Used Date Smoking Tobacco: Never Smokeless Tobacco: Never Alcohol Use Standard [...] Description 09/11/2025 8:40 AM PST Office Visit 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
--- OUTSIDE RECORDS SUMMARY | 2025-02-25 12:10 | XMS_ITS | Clinical Summary ---
Author Organization [facility] Address [address] [place] [address] Care Team Providers Care Licensed Bondsman Name Role Phone Kash Wills MD Primary Care Provider [phone] Source Comments This information has been disclosed to you from records protected by Federal confidentiality rules (42 CFR part 2). The Federal rules prohibit you from making any further disclosure of this information unless further disclosure is expressly permitted by the written consent of the person to whom it pertains or as otherwise permitted by 42 CFR part 2. A general authorization for the release of medical or other information is NOT sufficient for this purpose. The Federal rules restrict any use of the information to criminally investigate or prosecute any alcohol or drug abuse patient.[facility] Allergies Active Allergy Reactions Criticality Noted Date Comments Promethazine Hcl 10/19/2006 achy Promethazine Other 05/22/2012 Other reaction(s): Myalgia achiness Medications VITAMIN B-12 1000 MCG/ML IJ SOLN EVERY OTHER WEEK Act tien Cholecalcifero l (VITAMIN D) 1000 UNITS CAPS CapIndications :Vitamin D Deficiency 5 q d 4 Active ustekinumab (USTEKINUMAB) 45mg/0.5mL Inj Administer 0.5 mL subcutaneously 0 Active CALCIUM CARBONATE ANTACID PO Take by mouth three times daily Tums 6 Active CREON 62347-92271 units Cap Take 2 Tabs by mouth three times daily with meals 0 Active Esomeprazole Magnesium (NEXIUM PO) Take 1 Tab by mouth daily Active Iron-Vitamin C (VITRON-C) 65-125 MG TABS Take 1 Tab by mouth daily 90 Tab 1 0 Active fluorouracil (EFUDEX) 5% Cream one Application to affected area(s) twice daily Apply twice daily for 2 weeks or as directed by your doctor. 40 g 2 4 Active Active Problems Problem Noted Date Diagnosed Date Microhematuria 07/16/2015 Encounter for long-term (current) use of antibio tics 01/27/2015 DVT (deep venous thrombosis) 06/13/2014 Degeneration of lumbar or lumbosacral interverte bral disc 02/20/2013 Renal stone 12/05/2012 Vitamin D deficiency 09/06/2010 Intestinal malabsorption (HHS/HCC) 09/06/2010 Other specified disorders of adrenal gland 03/27 Calculus of gallbladder 12/12/2007 Disorder of bone and cartilage 01/19/2005 Overview (10/19/2006): Mild osteopenia Regional enteritis 08/09/2004 Overview (10/19/2006): Present for many years- is status post loop ileostomy. On Remicade for treatment- sees Gastroenterology in [facility]. Renal stones Iron deficiency anemia Crohn's colitis Overview (01/31/2020): 1972 Resolved Problems Problem Noted Date Diagnosed Date Resolved Date FYI: ANTICOAG MGMT PATIENT INT (NO BILL) 01/27/2015 07/14/2015 residential current use of ant icoagulant therapy 01/27/2015 07/14/2015 residential current use of systemic steroids 03/27/2008 09/06/2010 Immunizations Immunization Administration Dates Next Due Influenza Vaccine HIGH DOSE PF Trivalent 65+YO (FLUZONE HD) 05/17/2021 Influenza Vaccine QUADR PF 6 + MO (FLUZONE, FLULAVAL, FLUARIX) 06/22/2020 Influenza vaccine 3+ YRS (Fluvirin) 08/16/2013,1 09/16/2008,06/04/2008 Influenza vaccine QUADR PF 3+ YO (AFLURIA) 06/06 Novel Influenza-H1N1, Inj Formulations 9 Pfizer 12+ Monovalent (Purpl e Cap) COVID-19 Vaccine INJ 06/15/2021,11/12/2020 Pneumovax-23 2+ Yrs 07/14/2008 Skin Test - PPD 04/25/2011,05/16/2003 Tetanus+Dip 7+YO (Td) (TENIV AC) CONTAINS LATEX Vaccine INJ 06/19/2009 Family History Medical History Relation Comments Cerebrovascular Disease/Stroke Father Prostate Cancer Father Heart Disease Mother Relation Status Comments Father Mother Social History Tobacco Use Types Packs/Day Years Used Date Smoking Tobacco: Never Smokeless Tobacco: Never Tobacco Cessation:Counseling Given: Not Answered Alcohol Use Standard Drinks/Week Comments Yes 0 (1 standard drink = 0.6 oz pur e alcohol) occasional. AUDIT-C Answer Date Recorded Q1: How often do you have a drink containing alc ohol? 2-3 times a week 01/31/2020 Q2: How many drinks containi ng alcohol do you have on a typical day when you are drinking? 1 or 2 01/31/2020 Frequency of Binge Drinking Not on file 01/06 Core Social Determinants of Health Screening Jayy guzman Answer Date Recorded Unable to Pay for Housing in the Last Year Not o n file 03/24/2023 [address] of Places Lived in the Last Year Not on f ile 03/24/2023 Unstable Housing in the Last Year Not on file 03/24/2023 Sex and Gender Information Value Date Recorded Sex Assigned at Not on file Legal Sex Male 11:21 AM PST Gender Identity Not on file Sexual Orientation Not on file Occupation Industry Job Start Date Job End Date permenant disability. Not on file Not on file Not on file Last Filed Vital Signs Vital Sign Reading Time Taken Comments Blood Pressure 125/83 10/22/2024 1:33 PM PDT Pulse 75 06/06/2016 11:01 AM PDT Temperature 37.1 C (98.7 F) 03/10/2020 11:19 AM PDT Respiratory Rate 12 02/10/2016 9:16 AM PDT Oxygen Saturation 100% 06/06/2016 11:01 AM PDT Inhaled Oxygen Concentration - - Weight 76.3 kg (168 lb 3.2 oz) 03/10/2020 11:19 AM PDT Height 167.6 cm (5' 6) 02/26/2018 8:57 AM PDT Body Mass Index 27.15 02/26/2018 8:57 AM PDT Plan of Treatment Health Maintenance Due Date Last Done Comments ZOSTER VACCINE (Shingrix w/wo Zostavax) (1 of 2) 12/18/2005 PNEUMOCOCCAL VACCINE 50+ YEARS (2 of 2 - PCV) 07/14/2009 07/14/2008 ADVANCE DIRECTIVE DISCUSSION 12/18/2020 COLORECTAL CANCER SCREENING DISCUSSION 01/30/2021 01/31/2020, 11/29/2012, 06/19/2009 (External Completion - Pt reported) COVID-19 Vaccine ( season) 2024 06/15/2021, 11/12/2020 INFLUENZA VACCINE 05/07/2025 05/17/2024, , 05/17/2021, Additional history exists LIPID SCREENING 07/29/2025 07/29/2020, 04/07, 03/06/2019, Additional history exists DTaP,Tdap,or Td Vaccine (2 - Td or Tdap) 09/29/2032 09/29/2022, 06/19/2009 HEPATITIS C SCREENING Completed 04/16/2020 RSV VACCINE 60+ YEARS OR Completed 08/01/2023 HEPATITIS A VACCINE Aged Out No longe r eligible based on patient's age to complete this topic HPV VACCINE Aged Out No longer eligi ble based on patient's age to complete this topic MENINGOCOCCAL ACWY VACCINE Aged Out N o longer eligible based on patient's age to complete this topic Procedures Procedure Name Priority Date/Time Associated Diagnosis Comments [facility] LIPID PANEL Routine 07/29/2020 8:07 AM PST Preventative health care [place] HEPATITIS C AB TEST Routine 04/16/2020 6:49 AM PDT Encounter for blood test for routine general physical examination OCCULT BLOOD IMMUNOASSAY Routine 11/29/2012 11:20 AM PDT Anemia, unspecified from Last 3 Months or Most Recently Relevant to Health Maintenance Results * (ABNORMAL) LIPID PROFILE (07/29/2020 8:07 AM [facility]) Total cholesterol 183 <200 mg/dL 07/29/2020 3:[address] [facility] [place] [phone] Comment: Desirable: <200 mg/dL Borderline: 200 to 239 mg/dL High: >240 mg/dL Triglyceride 200(H) <150 mg/dL 07/29/2020 3:[address] [facility] [place] [phone] Comment: Normal: <150 mg/dL Borderline High: 150 to 199 mg/dL High: 200 to 499 mg/dL Very High: > or = 500 mg/dL HDL cholesterol 44 >40 mg/dL 0 3:[address] [facility] [place] [phone] Comment: High: > or = 60 mg/dL Low: <40 mg/dL LDL Calculated 99 <130 mg/dL 07/29/2020 3:[address] [facility] [place] [phone] Comment: Optimal: <100 mg/dL Near Optimal: 100 to 129 mg/dL Borderline High: 130 to 159 mg/dL High: 160 to 189 mg/dL Very High: > or = 190 mg/dL Cholesterol to HDL Ratio 4.2 0 - 4.98 07/29/2020 3:[address] [facility] [place] [phone] LDL:HDL Ratio 2.25 1.00 - 3.50 07/29/2020 3:[address] [facility] [place] [phone] Comment: Cholesterol/HDL Cholesterol Ratio Interpretation Risk Female Male 1/2 Average 3.27 3.34 Average 4.44 4.97 2X Average 7.05 9.55 3X Average 11.04 23.39 VLDL (Calculated) 40(H) 4 - 32 mg/dL 07/29/2020 3:[address] [facility] [place] [phone] Serum (Blood) 07/29/2020 8:0 7 AM PST 07/29/2020 8:08 AM PST us Reinier Jorgensen MD LAB CHEMISTRY Final Result [facility] [address] [place] [address] [facility] [place] [phone] [place] [address] * HEPATITIS C ANTIBODY (04/16/2020 6:49 AM PDT) Hepatitis C Antibody Non Reactive Non Reactive 04/16/2020 3:14 PM PDT [facility] [phone] Comment:Antibodies to HCV no t detected. Does not exclude early acute HCV infection. Serum (Blood) 04/16/2020 6:4 9 AM PDT 04/16/2020 6:50 AM PDT Reinier Jorgensen MD LAB IMMUNOSEROLOGY Final Resul t [facility] [address] [place] [address] [facility] [phone] [address] [place] [address] * (ABNORMAL) OCCULT BLOOD IMMUNOASSAY (11/29/2012 11:20 AM PDT) Pathologist [facility] [place] Occult Blood by Immunoassay Pos(A) Neg [facility] 11/29/2012 11:2 0 AM PDT 11/29/2012 11:25 AM PDT us Mike Conroy MD LAB HEMATOLOGY Final Resu lt Performing Organization Address City/[facility] Co de Phone Number [facility] [address] [place] [address] from Last 3 Months or Most Recently Relevant to Health Maintenance Insurance [facility] PPO POS EPO MEDICARE [facility] [address] [place] [id number] MEDICARE MEDICARE [facility] PPO POS EPO [facility] MEDICARE SUPPLEMENT MEDICARE [facility] MEDICARE SUPPLEMENT BLUE CROSS PPO POS EPO MEDICARE [facility] [place] [address] Advance Directives For more information, please contact: [phone] Documents on File Type Date Recorded Patient Inspecting Supervisor Expl anation Adv Dir/Rosie Will/POA 06/19/2009 Adv Dir/Rosie Will/POA 06/19/2009 Care Teams Licensed Bondsman Relationship Specialty Start Date End Date Kash Wills MD [address] [address] PCP - General Family Medicine 10/22/24
--- OUTSIDE RECORDS SUMMARY | 2025-02-25 12:10 | XMS_ITS | Continuity of Care Document ---
Author Name [facility] Care Team Providers Care Vamp Maker Name Role Phone [facility] Unavailable Unavailable Problems Problem Status Onset Date Classification Date Reported Comments Source Gastroenteritis Active 07/29/2021 07/30/2021 40 [facility] Medications Medication Details Route Status Patient Instructions Ordering Provider Order Date Source Ondansetron 4 MG Oral Tablet [Zofran] = 1 Tab, ORAL, Q6H, PRN Nausea/Vom iting, # 12 Tab, 0 Refill(s), Soft Stop Active 07/29/20 21 40 [facility] Zofran 4 mg oral tablet = 1 Tab, ORAL, Q6H, PRN PRN Nausea/Vom iting, # 12 Tab, 0 Refill(s), Soft Stop Active Philonis 07/29/20 21 40 [facility] Allergies, Adverse Reactions, Alerts Substance Category Reaction Severity Reaction type Status Date Reported Comments Source Phenergan Assertion Uncertain (qualifier value) Drug allergy Active 40 [facility] Results Order Name Results Value Reference Range Date Interpretation Comments Source CMP Sodium Level 139 mmol/L 134 - 143 01/06 [facility] CMP Potassium Level 4.7 mmol/L 3.5 - 5.1 01/06 [facility] CMP Chloride Level 103 mmol/L 101 - 111 01/06 [facility] CMP CO2/Carbon Dioxide 30 mmol/L 22 - 32 01/06 [facility] CMP Anion Gap 6 mmol/L 11 - 01/06 L [facility] CMP Glucose, Random 82 mg/dL 70 - 140 01/06 [facility] CMP BUN 14 mg/dL 4 - 20 01/06 [facility] CMP Creatinine 1.3 mg/dL 0.7 - 1.3 01/[address] [facility] BUN/Creat Ratio 11 12 - 20 01/06 [facility] Osmolality, Calculated 288 mOsm/kg 278 - 298 01/06 NA [facility] Calcium Level 9.3 mg/dL 8.3 - 10.3 01/[address] [facility] Total Protein 6.0 gm/dL 6.4 - 8.9 01/06 [facility] Albumin Level 4.1 gm/dL 3.5 - 5.3 01/[address] [facility] Globulin Level 1.9 gm/dL 2.3 - 3.5 01/06 [facility] A/G Ratio 2.2 0.7 - 2.2 01/[address] [facility] ALP 44 IntUnit/L 56 - 119 01/06 L [facility] ALT 18 IntUnit/L 7 - 52 01/[address] [facility] AST 17 IntUnit/L 10 - 39 01/[address] [facility] Bilirubin, Total 0.6 mg/dL 0.3 - 1.2 01/[address] [facility] eGFR 57 mL/min/1. 73m2 01/06 NA This eGFR equation utilizes the 2020 CKD-EPI creatinine equation.Stag es GFRNone or slight 1 >90 ml/minMild 2 60-89 ml/minModerat e 3 30-59 ml/minSevere 4 15-29 ml/minApproac adron Failure 5 <15 ml/min [facility] CMP Sex assigned at Male 01/06 [facility] Cortisol Cortisol, Serum 5.4 01/06 NA 6 a.m. - 10 a.m. reference interv6 a.m. - 10 a.m. reference interval: 6.0-18.4 ? g/dL4 p.m. - 8 p.m. reference interval: 2.7-10.5 g/dL [facility] Cortisol Sex assigned at Male 01/06 [facility] WBC 5.1 K/uL 5.0 - 9.5 01/06 [facility] Hg RBC 4.00 M/uL 3.70 - 5.50 01/06 NA [facility] HGB 13.2 gm/dL 13.0 - 17.0 01/06 [facility] Hg HCT 39.1 % 38.0 - 50.0 01/06 NA [facility] MCV 97.6 fL 80.0 - 99.0 01/06 [facility] MCH 32.9 pg 27.0 - 33.0 01/06 [facility] MCHC 33.7 gm/dL 31.8 - 36.2 01/06 [facility] RDW 14.7 % 10.0 - 16.4 01/06 [facility] Hg PLT 167 K/uL 150 - 450 01/06 [facility] MPV 9.1 fL 7.5 - 10.5 01/06 [facility] Sex assigned at Male 01/06 [facility] 202 mg/dL 00 - 199 01/06 [facility] LipidP Triglycerides 155 mg/dL 0 - 149 01/06 [facility]idP HDL Cholesterol 56 mg/dL 23 - 92 01/06 [facility] LipidP LDL Cholesterol, Calc 115 mg/dL 0 - 99 01/06 [facility] LipidP Total Chol/HDL Ratio 3.6 01/06 [facility] LipidP LDL/HDL Ratio 2.0 01/06 [facility] LipidP VLDL Cholesterol, Calc 31 mg/dL 0 - 40 01/06 [facility] LipidP Sex assigned at Male 01/06 [facility] AutoDiff* Auto Neutrophil Percent 72.3 % 49.4 - 72.6 11/28 [facility] AutoDiff* Auto Neutrophil Absolute 5.7 K/uL 2.0 - 6.4 11/28 [facility] AutoDiff* Auto Lymphocyte Percent 18.4 % 18.0 - 40.0 11/28 [facility] AutoDiff* Auto Lymphocyte Absolute 1.4 K/uL 1.5 - 3.0 11/28 L [facility] AutoDiff* Auto Monocyte Percent 8.5 % 4.9 - 10.1 11/28 [facility] AutoDiff* Auto Monocyte Absolute 0.7 K/uL 0.3 - 0.8 11/28 [facility] AutoDiff* Auto Eosinophil Percent 0.6 % 0.0 - 5.0 11/28 [facility] AutoDiff* Auto Eosinophil Absolute 0.0 K/uL 0.0 - 0.4 11/28 [facility] AutoDiff* Auto Basophil Percent 0.2 % 0.2 - 1.2 11/28 [facility] AutoDiff* Auto Basophil Absolute 0.0 K/uL 0.0 - 0.1 11/28 [facility] AutoDiff* Sex assigned at Male 11/28 [facility] CBC WBC 7.8 K/uL 5.0 - 9.5 11/28 [facility] CBC RBC 4.17 M/uL 3.70 - 5.50 11/28 [facility] CBC HGB 14.2 gm/dL 13.0 - 17.0 11/28 [facility] CBC HCT 41.8 % 38.0 - 50.0 11/28 [facility] CBC MCV 100.3 fL 80.0 - 99.0 11/28 H [facility] CBC MCH 34.1 pg 27.0 - 33.0 11/28 H [facility] CBC MCHC 34.0 gm/dL 31.8 - 36.2 11/28 NA [facility] CBC RDW 14.6 % 10.0 - 16.4 11/28 [facility] CBC PLT 142 K/uL 150 - 450 11/28 L [facility] CBC MPV 9.1 fL 7.5 - 10.5 11/28 NA [facility] CBC Sex assigned at Male 11/28 NA [facility] CMP Sodium Level 140 mmol/L 134 - 143 11/28 [facility] CMP Potassium Level 4.3 mmol/L 3.5 - 5.1 11/[address] [facility] Chloride Level 105 mmol/L 101 - 111 11/28 [facility] CMP CO2/Carbon Dioxide 28 mmol/L 22 - 32 11/28 [facility] CMP Anion Gap 7 mmol/L 11 - 22 11/28 L [facility] CMP Glucose, Random 90 mg/dL 70 - 140 11/28 [facility] CMP BUN 25 mg/dL 4 - 20 11/28 H [facility] CMP Creatinine 1.2 mg/dL 0.7 - 1.3 11/[address] [facility] BUN/Creat Ratio 21 12 - 20 11/28 H [facility] CMP Osmolality, Calculated 294 mOsm/kg 278 - 298 11/28 [facility] CMP Calcium Level 9.1 mg/dL 8.3 - 10.3 11/28 [facility] CMP Total Protein 6.3 gm/dL 6.4 - 8.9 11/28 L [facility] CMP Albumin Level 4.3 gm/dL 3.5 - 5.3 11/28 [facility] CMP Globulin Level 2.0 gm/dL 2.3 - 3.5 11/28 L [facility] A/G Ratio 2.2 0.7 - 2.2 11/28 NA [facility] ALP 40 IntUnit/L 56 - 119 11/28 L [facility] ALT 22 IntUnit/L 7 - 52 11/28 NA [facility] AST 16 IntUnit/L 10 - 39 11/28 NA [facility] Bilirubin, Total 0.7 mg/dL 0.3 - 1.2 11/28 NA [facility] eGFR 63 mL/min/1. 73m2 11/28 NA This eGFR equation utilizes the 2020 CKD-EPI creatinine equation.Stag es GFRNone or slight 1 >90 ml/minMild 2 60-89 ml/minModerat e 3 30-59 ml/minSevere 4 15-29 ml/minApproac daron Failure 5 <15 ml/min [facility] CMP Sex assigned at Male 11/28 [facility] Ferritin Ferritin Level 99.7 ng/mL 14.0 - 293.0 11/28 NA [facility] Ferritin Sex assigned at Male 11/28 [facility] Folate Folate Level 15.9 ng/mL 3.0 - 14.4 11/28 H Folate ranges are as listed below:Normal > 3.0 ng/mLIntermed iate 2.5-3.0 ng/mLDeficien t < 2.5 ng/mL [facility] Folate Sex assigned at Male 11/28 [facility] LipidP Total Cholesterol 228 mg/dL 00 - 199 11/28 H [facility] LipidP Triglycerides 169 mg/dL 0 - 149 11/28 H [facility] LipidP HDL Cholesterol 69 mg/dL 23 - 92 11/28 [facility] LipidP LDL Cholesterol, Calc 125 mg/dL 0 - 99 11/28 H [facility] LipidP Total Chol/HDL Ratio 3.3 11/28 [facility] LipidP LDL/HDL Ratio 1.8 11/28 NA [facility] LipidP VLDL Cholesterol, Calc 34 mg/dL 0 - 40 11/28 NA [facility] LipidP Sex assigned at Male 11/28 [facility] PSAA SCRN PSA Prostatic Specific Antigen Screen 0.79 ng/mL 0.01 - 4.00 11/28 NA The methodology used for this assay is the [employer] ch PSA immunoassay. [facility] PSAA SCRN Sex assigned at Male 11/28 [facility] TSH3 TSH Thyroid Stim Hormone 3RD Generation 2.19 uInt Unit/mL 0.45 - 5.33 11/28 NA [facility] TSH3 Sex assigned at Male 11/28 [facility] VitB12 Vitamin B12 Level 343 pg/mL 180 - 914 11/28 [facility] VitB12 Sex assigned at Male 11/28 [facility] VitD25 Vitamin D, 25-Hydroxy 36.0 ng/mL >=30.0 11/28 NA RESULT INTERPRETATIO N <20 ng/mL [id number] 0 ng/mL Inadequate >30 ng/mL Adequate >150 ng/mL Possible Toxicity >20 ng/mL Pediatric Adequate (1-17 yrs) [facility] VitD25 Sex assigned at Male 11/28 [facility] Mg Magnesium Level 1.7 mg/dL 1.8 - 2.5 10/24 L [facility] Mg Sex assigned at Male 10/24 [facility] proBNPNT proBrain Natriuretic Peptide 93 pg/mL 0-124 10/24 NA REFERENCE INTERVAL: NT-Probnp Natriuretic Peptide Access complete set of age- and/or gender-specif ic reference intervals for this test in the [email or web address] Test Directory ([facility]) .Performed By: [id number] [address] [place], [place] [address]Szwiytsy ry Director: Bj Carrasco MD, PhDCLIA Number: [id number] [facility] proBNPNT Sex assigned at Male 10/24 [facility] VitB12 Vitamin B12 Level 363 pg/mL 180 - 914 10/24 NA [facility] VitB12 Sex assigned at Male 10/[address] [facility] Sodium Level 139 mmol/L 134 - 143 10/[address] [facility] Potassium Level 3.8 mmol/L 3.5 - 5.1 10/[address] [facility] Chloride Level 103 mmol/L 101 - 111 10/[address] [facility] CO2/Carbon Dioxide 27 mmol/L 22 - 32 10/[address] [facility] Anion Gap 9 mmol/L 11 - 10/24 L [facility] Glucose, Random 73 mg/dL 70 - 140 10/[address] [facility] BUN 15 mg/dL 4 - 20 10/[address] [facility] Creatinine 1.2 mg/dL 0.7 - 1.3 10/[address] [facility] BUN/Creat Ratio 12 12 - 10/[address] [facility] Osmolality, Calculated 287 mOsm/kg 278 - 298 10/[address] [facility] Calcium Level 8.9 mg/dL 8.3 - 10.3 10/[address] [facility] Total Protein 6.4 gm/dL 6.4 - 8.9 10/[address] [facility] Albumin Level 4.2 gm/dL 3.5 - 5.3 10/[address] [facility] Globulin Level 2.2 gm/dL 2.3 - 3.5 10/24 [facility] A/G Ratio 1.9 0.7 - 2.2 10/24 [facility] CMP ALP 48 IntUnit/L 56 - 119 10/24 L [facility] CMP ALT 17 IntUnit/L 7 - 52 10/24 [facility] CMP AST 18 IntUnit/L 10 - 39 10/[address] [facility] Bilirubin, Total 0.7 mg/dL 0.3 - 1.2 10/[address] [facility] eGFR 63 mL/min/1. 73m2 10/24 NA This eGFR equation utilizes the 2020 CKD-EPI creatinine equation.Stag es GFRNone or slight 1 >90 ml/minMild 2 60-89 ml/minModerat e 3 30-59 ml/minSevere 4 15-29 ml/minApproac daron Failure 5 <15 ml/min [facility] CMP Sex assigned at Male 10/24 [facility] AutoDiff* Auto Neutrophil Percent 68.1 % 49.4 - 72.6 10/24 [facility] AutoDiff* Auto Neutrophil Absolute 3.6 K/uL 2.0 - 6.4 10/24 [facility] AutoDiff* Auto Lymphocyte Percent 20.5 % 18.0 - 40.0 10/24 [facility] AutoDiff* Auto Lymphocyte Absolute 1.1 K/uL 1.5 - 3.0 10/24 [facility] AutoDiff* Auto Monocyte Percent 8.2 % 4.9 - 10.1 10/24 [facility] AutoDiff* Auto Monocyte Absolute 0.4 K/uL 0.3 - 0.8 10/24 [facility] AutoDiff* Auto Eosinophil Percent 2.7 % 0.0 - 5.0 10/24 [facility] AutoDiff* Auto Eosinophil Absolute 0.1 K/uL 0.0 - 0.4 10/24 [facility] AutoDiff* Auto Basophil Percent 0.5 % 0.2 - 1.2 10/24 [facility] AutoDiff* Auto Basophil Absolute 0.0 K/uL 0.0 - 0.1 10/24 [facility] AutoDiff* Sex assigned at Male 10/24 [facility] CBC WBC 5.4 K/uL 5.0 - 9.5 10/24 NA [facility] CBC RBC 4.37 M/uL 3.70 - 5.50 10/24 NA [facility] CBC HGB 14.7 gm/dL 13.0 - 17.0 10/24 NA [facility] CBC HCT 43.4 % 38.0 - 50.0 10/24 NA [facility] CBC MCV 99.3 fL 80.0 - 99.0 10/24 H [facility] CBC MCH 33.7 pg 27.0 - 33.0 10/24 H [facility] CBC MCHC 33.9 gm/dL 31.8 - 36.2 10/24 [facility] CBC RDW 13.8 % 10.0 - 16.4 10/24 [facility] CBC PLT 136 K/uL 150 - 450 10/24 L [facility] CBC MPV 9.1 fL 7.5 - 10.5 10/24 [facility] CBC Sex assigned at Male 10/24 [facility] CoQ10 Coenzyme Q10 1.6 mg/L 0.4-1.6 10/24 NA INTERPRETIVE INFORMATION: Coenzyme Q10, Total This test was developed and its performance characteristi cs determined by [facility]. It has not been cleared or approved by the [place] Food and Drug Administratio n. This test was performed in a CLIA certified laboratory and is intended for clinical purposes.Perf ormed By: [id number] [address] [place], [place] [address]Kbzdkwce ry Director: Bj Carrasco MD, PhDCLIA Number: [id number] [facility] CoQ10 Sex assigned at Male 10/24 [facility] ESR Auto Sedimentation Rate Auto 14 mm/hr - <=9 10/24 H [facility] ESR Auto Sex assigned at Male 10/24 [facility] Test+AM Testosterone, Total 335.88 ng/dL 168.00 - 758.00 10/24 NA [facility] Test+AM Testosterone, Free 66.7 pg/mL 47.0 - 244.0 10/24 NA Leandro Stage IV 35 169 pg/mLTanner Stage V 41 239 pg/mLThe concentration of Free Testosterone is derived from a mathematical expression based on the constant for the binding of testosterone to Sex Hormone Binding Glubulin (SHBG). [facility] Test+AM Sex Hormone Binding Globulin 33.2 nmol/L 18.2 - 135.5 10/24 [facility] Test+AM Testosterone, % Free 2.0 % 1.6 - 2.9 10/24 [facility] Test+AM Sex assigned at Male 10/24 [facility] TSH3 TSH Thyroid Stim Hormone 3RD Generation 3.91 uInt Unit/mL 0.45 - 5.33 10/24 [facility] TSH3 Sex assigned at Male 10/24 [facility] CBC WBC 8.9 K/uL 5.0 - 9.5 04/21 [facility] CBC RBC 4.46 M/uL 3.70 - 5.50 04/21 [facility] CBC HGB 14.3 gm/dL 13.0 - 17.0 04/21 [facility] CBC HCT 43.0 % 38.0 - 50.0 04/21 [facility] CBC MCV 96.2 fL 80.0 - 99.0 04/21 [facility] CBC MCH 32.1 pg 27.0 - 33.0 04/21 [facility] CBC MCHC 33.3 gm/dL 31.8 - 36.2 04/21 [facility] CBC RDW 15.0 % 10.0 - 16.4 04/21 [facility] CBC PLT 139 K/uL 150 - 450 04/21 L [facility] CBC MPV 9.8 fL 7.5 - 10.5 04/21 NA [facility] CBC Sex assigned at Male 04/21 NA [facility] CBC Manual Diff Y/N MANUAL DIFF 04/21 NA [facility] CMP Sodium Level 139 mmol/L 134 - 143 04/21 NA [facility] CMP Potassium Level 4.0 mmol/L 3.6 - 5.1 04/21 NA [facility] CMP Chloride Level 103 mmol/L 98 - 107 04/21 NA [facility] CMP CO2/Carbon Dioxide 28 mmol/L 22 - 32 04/21 NA [facility] Anion Gap 8 mmol/L 11 - 22 04/21 L [facility] Glucose, Random 89 mg/dL 70 - 110 04/[address] [facility] BUN 20 mg/dL 8 - 21 04/21 [facility] CMP Creatinine 1.18 mg/dL 0.61 - 1.27 04/[address] [facility] BUN/Creat Ratio 16.9 6.0 - 20.0 04/[address] [facility] Osmolality, Calculated 290 mOsm/kg 04/[address] [facility] Calcium Level 9.4 mg/dL 8.4 - 10.6 04/[address] [facility] Total Protein 6.8 gm/dL 6.1 - 7.9 04/21 [facility] CMP Albumin Level 4.0 gm/dL 3.5 - 4.8 04/21 [facility] CMP Globulin Level 2.8 gm/dL 2.0 - 3.8 04/21 [facility] CMP A/G Ratio 1.43 1.20 - 2.50 04/21 [facility] CMP ALP 52 IntUnit/L 38 - 126 04/21 [facility] CMP ALT 23 IntUnit/L 17 - 63 04/[address] [facility] AST 20 IntUnit/L 15 - 41 04/[address] [facility] Bilirubin, Total 0.9 mg/dL 0.1 - 2.0 04/21 NA [facility] eGFR 68 mL/min/1. 73m2 04/21 NA This eGFR equation utilizes the 2020 CKD-EPI creatinine equation.Stag es GFRNone or slight 1 >90 ml/minMild 2 60-89 ml/minModerat e 3 30-59 ml/minSevere 4 15-29 ml/minApproac daron Failure 5 <15 ml/min [facility] CMP Sex assigned at Male 04/21 [facility] Ferritin Ferritin Level 22 ng/mL 14 - 293 04/21 [facility] Ferritin Sex assigned at Male 04/21 [facility] Trans[facility] Level 321 mg/dL 180 - 329 04/[facility] Capacity 449 mcg/dL 261 - 478 04/21 [facility] IBCTTrans % Iron Saturation 25.8 % 27.0 - 45.0 04/21 L [facility] Sex assigned at Male 04/21 [facility] Iron Iron Level 116 mcg/dL 45 - 182 04/21 [facility] Iron Sex assigned at Male 04/21 [facility] MDiff Blasts % 0.0 % 0.0 - 0.0 04/21 [facility] MDiff Absolute Blast Count 0.0 K/uL 0.0 - 0.0 04/21 [facility] MDiff Promyelocytes % 0.0 % 0.0 - 0.0 04/21 [facility] MDiff Absolute Promyelocyte Count 0.0 K/uL 0.0 - 0.0 04/21 [facility] MDiff Myelocytes % 0.0 % 0.0 - 0.0 04/21 NA [facility] MDiff Absolute Myelocyte Count 0.0 K/uL 0.0 - 0.0 04/21 NA [facility] MDiff Metamyelocyte s % 0.0 % 0.0 - 0.0 04/21 NA [facility] MDiff Absolute Metamyelocyte Count 0.0 K/uL 0.0 - 0.0 04/21 NA [facility] MDiff Bands % 2 % 0 - 6 04/21 NA [facility] MDiff Absolute Bands Count 0.2 K/uL 0.0 - 0.6 04/21 NA [facility] MDiff Manual Neutrophil Percent 73.0 % 49.4 - 72.6 04/21 H [facility] MDiff Manual Neutrophil Absolute 6.7 K/uL 2.0 - 6.4 04/21 H [facility] MDiff Manual Lymphocyte Percent 16.0 % 18.0 - 40.0 04/21 L [facility] MDiff Manual Lymphocyte Absolute 1.4 K/uL 1.5 - 3.0 04/21 L [facility] MDiff Manual Monocyte Percent 9.0 % 4.9 - 10.1 04/21 NA [facility] MDiff Manual Monocyte Absolute 0.8 K/uL 0.3 - 0.8 04/21 NA [facility] MDiff Manual Eosinophil Percent 0.0 % 0.0 - 5.0 04/21 NA [facility] MDiff Manual Eosinophil Absolute 0.0 K/uL 0.0 - 0.4 04/21 NA [facility] MDiff Manual Basophil Percent 0.0 % 0.0 - 1.2 04/21 NA [facility] MDiff Manual Basophil Absolute 0.0 K/uL 0.0 - 0.1 04/21 NA [facility] MDiff Microcytosis 1 None 04/21 * [facility] MDiff Macrocytosis 1 None 04/21 * [facility] MDiff Polychromasia 1 None 04/21 * [facility] MDiff Ovalocytes 1 None 04/21 * [facility] MDiff Smudge Cells 0 % 0 - 0 04/21 NA [facility] MDiff PLT Estimate D Adequate 04/21 * [facility] MDiff Sex assigned at Male 04/21 NA [facility] UMicralbR Microalbumin, Urine Random <0.7 mg/dL 0.0 - 1.9 04/21 NA [facility] UMicralbR Creatinine, Urine Random 89.3 mg/dL 20.0 - 320.0 04/21 NA [facility] UMicralbR Microalbumin/ Creat Ratio, Urine Random <7.84 mcg/mg 0.00 - 30.00 04/21 NA [employer] [place] [employer] Position Statement on Diabetic Nephropathy states that Microalbuminu sneha can be classified in the following manner:Normal <30 mcg/mg creatinine Microalbuminu sneha 30-300 mcg/mg creatinine Clinical Albuminuria >300 mcg/mg creatinineThe classificatio n should be based upon at least two to three measurements over time. [facility] UMicralbR Sex assigned at Male 04/21 [facility] VitB12 Vitamin B12 Level 496 pg/mL 180 - 914 04/21 NA [facility] VitB12 Sex assigned at Male 04/21 [facility] VitD25 Vitamin D, 25-Hydroxy 34.0 ng/mL >=30.0 04/21 NA RESULT INTERPRETATIO N <20 ng/mL [id number] 0 ng/mL Inadequate >30 ng/mL Adequate >150 ng/mL Possible Toxicity >20 ng/mL Pediatric Adequate (1-17 yrs) [facility] VitD25 Sex assigned at Male 04/21 [facility] AutoDiff* Auto Neutrophil Percent 68.3 % 49.4 - 72.6 11/25 [facility] AutoDiff* Auto Neutrophil Absolute 4.2 K/uL 2.0 - 6.4 11/25 [facility] AutoDiff* Auto Lymphocyte Percent 21.4 % 18.0 - 40.0 11/25 [facility] AutoDiff* Auto Lymphocyte Absolute 1.3 K/uL 1.5 - 3.0 11/25 L [facility] AutoDiff* Auto Monocyte Percent 9.0 % 4.9 - 10.1 11/25 [facility] AutoDiff* Auto Monocyte Absolute 0.6 K/uL 0.3 - 0.8 11/25 [facility] AutoDiff* Auto Eosinophil Percent 1.0 % 0.0 - 5.0 11/25 [facility] AutoDiff* Auto Eosinophil Absolute 0.1 K/uL 0.0 - 0.4 11/25 [facility] AutoDiff* Auto Basophil Percent 0.3 % 0.2 - 1.2 11/25 [facility] AutoDiff* Auto Basophil Absolute 0.0 K/uL 0.0 - 0.1 11/25 NA [facility] AutoDiff* Sex assigned at Male 11/25 [facility] CBC WBC 6.2 K/uL 5.0 - 9.5 11/25 [facility] CBC RBC 4.32 M/uL 3.70 - 5.50 11/25 NA [facility] CBC HGB 14.4 gm/dL 13.0 - 17.0 11/25 [facility] CBC HCT 43.2 % 38.0 - 50.0 11/25 [facility] CBC MCV 100.0 fL 80.0 - 99.0 11/25 H [facility] CBC MCH 33.5 pg 27.0 - 33.0 11/25 H [facility] CBC MCHC 33.5 gm/dL 31.8 - 36.2 11/25 NA [facility] CBC RDW 13.9 % 10.0 - 16.4 04/21 /2023 [facility] CBC PLT 333 K/uL 150 - 450 11/25 [facility] CBC MPV 8.7 fL 7.5 - 10.5 11/25 [facility] CBC Sex assigned at Male 11/25 NA [facility] Sodium Level 138 mmol/L 134 - 143 11/[address] [facility] Potassium Level 4.8 mmol/L 3.6 - 5.1 11/[address] [facility] Chloride Level 104 mmol/L 98 - 107 11/25 [facility] CMP CO2/Carbon Dioxide 27 mmol/L 22 - 32 11/[address] [facility] Anion Gap 7 mmol/L 11 - 22 11/25 L [facility] Glucose, Random 72 mg/dL 70 - 110 11/[address] [facility] BUN 18 mg/dL 8 - 11/[address] [facility] Creatinine 1.17 mg/dL 0.61 - 1.27 11/[address] [facility] BUN/Creat Ratio 15.4 6.0 - 20.0 11/[address] [facility] Osmolality, Calculated 286 mOsm/kg 11/[address] [facility] Calcium Level 9.3 mg/dL 8.4 - 10.6 11/[address] [facility] Total Protein 6.8 gm/dL 6.1 - 7.9 11/[address] [facility] Albumin Level 3.8 gm/dL 3.5 - 4.8 11/[address] [facility] Globulin Level 3.0 gm/dL 2.0 - 3.8 11/[address] [facility] A/G Ratio 1.27 1.20 - 2.50 11/25 [facility] CMP ALP 166 IntUnit/L 38 - 126 11/25 H [facility] CMP ALT 63 IntUnit/L 17 - 63 11/25 [facility] CMP AST 20 IntUnit/L 15 - 41 11/[address] [facility] Bilirubin, Total 0.8 mg/dL 0.1 - 2.0 11/25 [facility] CMP Sex assigned at Male 11/25 [facility] CMP eGFR 69 mL/min/1. 73m2 11/25 NA This eGFR equation utilizes the 2020 CKD-EPI creatinine equation.Stag es GFRNone or slight 1 >90 ml/minMild 2 60-89 ml/minModerat e 3 30-59 ml/minSevere 4 15-29 ml/minApproac daron Failure 5 <15 ml/min [facility] Ferritin Ferritin Level 250 ng/mL 14 - 293 11/25 [facility] Ferritin Sex assigned at Male 11/25 [facility] IBCTTrans Transferrin Level 272 mg/dL 180 - 329 11/25 [facility] IBCTTrans Iron Binding Capacity 381 mcg/dL 261 - 478 11/25 [facility] Iron Saturation 29.4 % 27.0 - 45.0 11/25 [facility] Sex assigned at Male 11/25 [facility] Iron Iron Level 112 mcg/dL 45 - 182 11/25 [facility] Iron Sex assigned at Male 11/25 [facility] TSH3 TSH Thyroid Stim Hormone 3RD Generation 3.72 uInt Unit/mL 0.45 - 5.33 10/31 [facility] TSH3 Sex assigned at Male 10/31 [facility] AutoDiff* Auto Neutrophil Percent 70.8 % 49.4 - 72.6 10/21 [facility] AutoDiff* Auto Neutrophil Absolute 4.5 K/uL 2.0 - 6.4 10/21 [facility] AutoDiff* Auto Lymphocyte Percent 20.1 % 18.0 - 40.0 10/21 NA [facility] AutoDiff* Auto Lymphocyte Absolute 1.3 K/uL 1.5 - 3.0 10/21 L [facility] AutoDiff* Auto Monocyte Percent 7.7 % 4.9 - 10.1 10/21 NA [facility] AutoDiff* Auto Monocyte Absolute 0.5 K/uL 0.3 - 0.8 10/21 [facility] AutoDiff* Auto Eosinophil Percent 0.9 % 0.0 - 5.0 10/21 NA [facility] AutoDiff* Auto Eosinophil Absolute 0.1 K/uL 0.0 - 0.4 10/21 [facility] AutoDiff* Auto Basophil Percent 0.5 % 0.2 - 1.2 10/21 [facility] AutoDiff* Auto Basophil Absolute 0.0 K/uL 0.0 - 0.1 10/21 NA [facility] AutoDiff* Sex assigned at Male 10/21 [facility] CBC WBC 6.3 K/uL 5.0 - 9.5 10/21 [facility] CBC RBC 3.85 M/uL 3.70 - 5.50 10/21 [facility] CBC HGB 13.0 gm/dL 13.0 - 17.0 10/21 [facility] CBC HCT 38.0 % 38.0 - 50.0 10/21 [facility] CBC MCV 98.6 fL 80.0 - 99.0 10/21 [facility] CBC MCH 33.7 pg 27.0 - 33.0 10/21 H [facility] CBC MCHC 34.1 gm/dL 31.8 - 36.2 10/21 [facility] CBC RDW 12.9 % 10.0 - 16.4 10/21 [facility] CBC PLT 181 K/uL 150 - 450 10/21 [facility] CBC MPV 10.0 fL 7.5 - 10.5 10/21 NA [facility] CBC Sex assigned at Male 10/21 [facility] FolateRBC Folate, RBC >1271 ng/mL >=366 10/21 NA [facility] FolateRBC Sex assigned at Male 10/21 [facility] Homocyst Homocysteine, Total 8.2 mcmol/L 5.0 - 20.0 10/21 NA -Elevated levels of homocysteine can be associated with anincreased risk of CVD and are independently associated withincreased rates of all-cause and CVD mortality.-Dr ugs such as methotrexate, carbamazepine , phenytoin,nit dhruv oxide, and 6-azauridine triacetate interfere withHCY metabolism and may give elevated levels of HCY.-Testing may be performed on serum, EDTA, or heparinizedpl asma. However, individual patient results from differentspec imen types are not interchangeab le. [facility] Homocyst Sex assigned at Male 10/21 [facility] MMA MMA - Methylmalonic Acid 0.22 mcmol/L 0.00-0.40 10/21 NA INTERPRETIVE INFORMATION: MMA Serum/Plasma, Vitamin B12 Status This test was developed and its performance characteristi cs determined by [employer]. It has not been cleared or approved by the US Food and Drug Administratio n. This test was performed in a CLIA certified laboratory and is intended for clinical purposes.Perf ormed By: [id number] [place], [place] [id number] ry Director: Bj Carrasco MD, PhD [facility] MMA Sex assigned at Male 10/21 [facility] VitB12 Vitamin B12 Level 1262 pg/mL 180 - 914 10/21 H [facility] VitB12 Sex assigned at Male 10/21 [facility] VitD25 Vitamin D, 25-Hydroxy 39.0 ng/mL >=30.0 10/21 NA RESULT INTERPRETATIO N <20 ng/mL [id number] 0 ng/mL Inadequate >30 ng/mL Adequate >150 ng/mL Possible Toxicity >20 ng/mL Pediatric Adequate (1-17 yrs) [facility] VitD25 Sex assigned at Male 10/21 [facility] Sodium Level 138 mmol/L 134 - 143 10/21 NA [facility] Potassium Level 4.5 mmol/L 3.6 - 5.1 10/21 NA [facility] Chloride Level 104 mmol/L 98 - 107 10/21 NA [facility] CO2/Carbon Dioxide 28 mmol/L 22 - 32 10/21 [facility] Anion Gap 6 mmol/L 11 - 22 10/21 L [facility] Glucose, Random 87 mg/dL 70 - 110 10/21 [facility] BUN 19 mg/dL 8 - 21 10/21 NA [facility] Creatinine 1.22 mg/dL 0.61 - 1.27 10/21 [facility] BUN/Creat Ratio 15.6 6.0 - 20.0 10/21 [facility] Osmolality, Calculated 288 mOsm/kg 10/21 [facility] Calcium Level 8.9 mg/dL 8.4 - 10.6 10/21 [facility] eGFR 65 mL/min/1. 73m2 10/21 NA This eGFR equation utilizes the 2020 CKD-EPI creatinine equation.Stag es GFRNone or slight 1 >90 ml/minMild 2 60-89 ml/minModerat e 3 30-59 ml/minSevere 4 15-29 ml/minApproac daron Failure 5 <15 ml/min [facility] Sex assigned at Male 10/21 NA [facility] UAIf UA - Source/Collec t Type Urine Clean Cat 07/29 NA [facility] UA - Appearance CLEAR 07/29 NA [facility] UA - Color YELLOW 07/29 NA [facility] UA - pH 6.0 5.5 - 8.0 07/29 NA [facility] UA - Specific [place] 1.021 1.003 - 1.030 07/29 NA [facility] UAIf UA - Protein NEGATIVE mg/dL Negative 07/29 NA [facility] UAIf UA - Glucose NEGATIVE mg/dL Negative 07/29 NA [facility] UAIf UA - Ketones TRACE mg/dL Negative 07/29 * [facility] UACSIf UA - Bilirubin NEGATIVE Negative 07/29 NA [facility] UAIf UA - Blood NEGATIVE Negative 07/29 [facility] UA - Urobilinogen 0.2 EUnits/dL 0.2 - 1.0 07/29 NA [facility] UAIf UA - Nitrites NEGATIVE Negative 07/29 [facility] UAIf UA - Leukocyte Esterase NEGATIVE Negative 07/29 NA [facility] UAIf Urine Culture Y/N No 07/29 NA [facility] UACSIf UA - WBC < 2 /HPF 0 - 5 07/29 [facility] UAIf UA - RBC < 4 /HPF 0 - 3 07/29 [facility] UAIf UA - Bacteria NONE SEEN /HPF 07/29 [facility] UAIf UA - Epithelials, Squamous NONE SEEN /HPF 07/29 [facility] UAIf UA - Casts, Hyaline FEW /HPF 0 - 2 07/29 [facility] UACSIf Sex assigned at Male 07/29 [facility] AutoDiff* Auto Neutrophil Percent 88.6 % 49.4 - 72.6 07/29 H [facility] AutoDiff* Auto Neutrophil Absolute 10.6 K/uL 2.0 - 6.4 12/23 /2021 H [facility] AutoDiff* Auto Lymphocyte Percent 3.2 % 18.0 - 40.0 07/29 L [facility] AutoDiff* Auto Lymphocyte Absolute 0.4 K/uL 1.5 - 3.0 07/29 L [facility] AutoDiff* Auto Monocyte Percent 7.7 % 4.9 - 10.1 07/29 [facility] AutoDiff* Auto Monocyte Absolute 0.9 K/uL 0.3 - 0.8 07/29 H [facility] AutoDiff* Auto Eosinophil Percent 0.4 % 0.0 - 5.0 07/29 [facility] AutoDiff* Auto Eosinophil Absolute 0.0 K/uL 0.0 - 0.4 07/29 [facility] AutoDiff* Auto Basophil Percent 0.1 % 0.2 - 1.2 07/29 [facility] AutoDiff* Auto Basophil Absolute 0.0 K/uL 0.0 - 0.1 07/29 NA [facility] AutoDiff* Sex assigned at Male 07/29 [facility] CBC WBC 11.9 K/uL 5.0 - 9.5 07/29 H [facility] CBC RBC 4.76 M/uL 3.70 - 5.50 07/29 [facility] CBC HGB 15.4 gm/dL 13.0 - 17.0 07/29 [facility] CBC HCT 45.7 % 38.0 - 50.0 07/29 [facility] CBC MCV 96.0 fL 80.0 - 99.0 07/29 [facility] CBC MCH 32.5 pg 27.0 - 33.0 07/29 [facility] CBC MCHC 33.8 gm/dL 31.8 - 36.2 07/29 [facility] CBC RDW 15.6 % 10.0 - 16.4 07/29 NA [facility] CBC PLT 173 K/uL 150 - 450 07/29 [facility] CBC MPV 8.7 fL 7.5 - 10.5 07/29 NA [facility] CBC Sex assigned at Male 07/29 NA [facility] Sodium Level 138 mmol/L 134 - 143 07/29 NA [facility] Potassium Level 4.2 mmol/L 3.6 - 5.1 07/29 NA [facility] Chloride Level 103 mmol/L 98 - 107 07/29 NA [facility] CO2/Carbon Dioxide 25 mmol/L 22 - 32 07/29 NA [facility] Anion Gap 10 mmol/L 11 - 07/29 L [facility] Glucose, Random 113 mg/dL 70 - 110 07/29 H [facility] BUN 22 mg/dL 8 - 21 07/29 H [facility] Creatinine 1.44 mg/dL 0.61 - 1.27 07/29 H [facility] BUN/Creat Ratio 15.3 6.0 - 20.0 07/[address] [facility] Osmolality, Calculated 290 mOsm/kg 07/[address] [facility] Calcium Level 9.4 mg/dL 8.4 - 10.6 07/[address] [facility] Total Protein 7.6 gm/dL 6.1 - 7.9 07/[address] [facility] Albumin Level 4.5 gm/dL 3.5 - 4.8 07/[address] [facility] Globulin Level 3.1 gm/dL 2.0 - 3.8 07/[address] [facility] A/G Ratio 1.45 1.20 - 2.50 07/29 [facility] CMP ALP 55 IntUnit/L 38 - 126 07/29 [facility] CMP ALT 27 IntUnit/L 17 - 63 07/29 NA [facility] AST 28 IntUnit/L 15 - 41 07/29 NA [facility] Bilirubin, Total 0.8 mg/dL 0.1 - 2.0 07/29 NA [facility] GFR - Non 49 mL/min/1. 73m2 >=60 07/29 L Estimated GFR in ml/min/1.73 square meters. Rates of lessthan 60 are suggestive of Chronic Kidney Disease. [facility] GFR - 60 mL/min/1. 73m2 >=60 07/29 NA [facility] CMP Sex assigned at Male 07/29 NA [facility] Lactic Lactic Acid Level 1.6 mmol/L 0.5 - 2.2 07/29 NA [facility] Lactic Sex assigned at Male 07/29 NA [facility] Lipase Lipase Level 26 units/L 22 - 51 07/29 NA [facility] Lipase Sex assigned at Male 07/29 NA [facility] Mg Magnesium Level 1.7 mg/dL 1.8 - 2.5 07/29 L [facility] Mg Sex assigned at Male 07/29 NA [facility] PCT Procalcitonin Level 0.45 ng/mL 0.05 - 2.00 07/29 NA PCT <0.5 ng/mL: Systemic infection (sepsis is not likely).Low risk for progression to severe systemic infection (severe sepsis).Local bacterial infection is possible. Caution: PCT levels below 0.5 ng/mL do not exclude an infection because localized infections (without systemic signs) may be associated with such low levels.Also if PCT is measured very early after a bacterial challenge (usually <6 hours), these values may still be low. In this case, PCT should be re-assessed 6-24 hours later.PCT => 0.5 and <2 ng/mL: Systemic infection (sepsis) is possible, but other conditions are known to induce PCT as well. Moderate risk for progression to severe systemic infection (severe sepsis). The patient should be closely monitored both clinically and be re-assessing PCT within 6-24 hours.PCT => 2 and <10 ng/mL: Systemic infection (sepsis) is likely, unless other causes are known.* High risk for progression to severe systemic infection (severe sepsis).PCT =>10 ng/mL: Important systemic inflammatory response, almost exclusively due to severe bacterial sepsis or septic shock. High likelihood of severe sepsis or septic shock. [facility] PCT Sex assigned at Male 07/29 NA [facility] VitD25 Vitamin D, 25-Hydroxy 32.0 ng/mL >=30.0 01/22 NA RESULT INTERPRETATIO N <20 ng/mL [id number] 0 ng/mL Inadequate >30 ng/mL Adequate >150 ng/mL Possible Toxicity >20 ng/mL Pediatric Adequate (1-17 yrs) [facility] Sodium Level 142 mmol/L 134 - 143 01/22 NA [facility] Potassium Level 3.8 mmol/L 3.6 - 5.1 01/22 NA [facility] Chloride Level 107 mmol/L 98 - 107 01/22 NA [facility] CO2/Carbon Dioxide 27 mmol/L 22 - 32 01/22 [facility] Anion Gap 8 mmol/L 11 - 22 01/22 L [facility] Glucose, Random 67 mg/dL 70 - 110 01/22 L [facility] BUN 24 mg/dL 8 - 21 01/22 H [facility] Creatinine 1.30 mg/dL 0.61 - 1.27 01/22 H [facility] BUN/Creat Ratio 18.5 6.0 - 20.0 01/22 [facility] Osmolality, Calculated 296 mOsm/kg 01/22 [facility] Calcium Level 9.0 mg/dL 8.4 - 10.6 01/22 [facility] GFR - Non 55 mL/min/1. 73m2 >=60 06/18 /2021 L Estimated GFR in ml/min/1.73 square meters. Rates of lessthan 60 are suggestive of Chronic Kidney Disease. [facility] BMP GFR - >60 mL/min/1. 73m2 >=60 01/22 NA [facility] VitB12 Vitamin B12 Level 198 pg/mL 180 - 914 01/22 NA [facility] Diagnostic Reports Report Value Date Source US Renal History: Kidney Ston e. Comparison: April 19, 2021 KUB Findings: Right kidney measures 10.4 cm is likely left kidney measures 10.1 cm length. No renal mass or hydronephrosis is noted. Nonobstructing 11 mm calculus is seen in the mid left kidney. Both ureteral jets are visible. Bladder is normal in size and shape and empties appropriately. Impression: Left millimeter nonobstructing left renal calculus. Signed by: Tyler Toussaint MD on 08/16/2022 5:03 PM 08/17/2022 [facility] MRI Lumbar Spine WO Contrast History: Low back pain. Technique: Utilizing the [employer]ist 1.5 Priya wide bore system sagittal and axial T1 and T2-weighted images of the lumbar spine were obtained. Findings: Lumbar vertebral body height and alignment are normal without significant marrow signal abnormality. The distal cord and conus medullaris are normal. L1-2 and L2-3: No significant disc disease. Canal and foramina are widely patent. L3-4: Desiccated slightly bulging disc results in no significant canal or foraminal narrowing. L4-5: Desiccated bulging disc eccentric to the right results in mild lateral recess stenosis with displacement but no compression of the transiting right L5 nerve root in the lateral recess. Disc interspace the foramen to elevate but not compress the exiting right L4 nerve root with some residual perineural fat L5-S1: Desiccated bulging disc with small midline protrusion. There is thecal sac abutment and slight distortion. There is a superimposed small left paracentral disc protrusion, image 6 series 2 and image 24 series 5. This protrusion abuts and displaces the origin of the left S1 nerve root but does not compress that structure. Impression: L5-S1 discopathy includes small left paracentral protrusion displacing but not compressing the origin of the left S1 nerve root. Symptomatic correlation is suggested. L4-5 discopathy includes rightward eccentric disc bulge that both displaces the right L5 nerve root in the lateral recess and right L4 nerve root in the foramen but does not compress dose structures. Symptomatic correlation is suggested. Signed by: Fawad Caldwell MD on 12/30/2021 8:46 AM 12/30/2021 [facility] Lumbar Spine 4 Vw Min History: Low back pain. Findings: Four view lumbar spine. Vertebral body height and alignment are normal with mild narrowing of the L4-5 and L5-S1 discs with osteophytes. Pedicles and endplates are intact. There is a probable stone left kidney. There are cholecystectomy clips with an embolization coil in the right upper quadrant. Impression: No acute bony abnormalities. Mild lower lumbar discopathy and spondylosis. Postsurgical changes as noted. Probable large left renal stone. Signed by: Fawad Caldwell MD on 11/26/2021 11:35 AM 11/26/2021 [facility] Abdomen 2 Vw History: abdominal p ain. Comparison: none Findings: 15 mm left renal calculus is noted. Surgical clips are consistent with prior cholecystectomy. Bowel gas pattern appears within normal limits. Impression: Left renal calculus. Signed by: Tyler Toussaint MD on 04/19/2021 2:22 PM 04/19/2021 [facility] Consultation Notes Results Value Date Source US Kidney History: Kidney Ston e. Comparison: April 19, 2021 KUB Findings: Right kidney measures 10.4 cm is likely left kidney measures 10.1 cm length. No renal mass or hydronephrosis is noted. Nonobstructing 11 mm calculus is seen in the mid left kidney. Both ureteral jets are visible. Bladder is normal in size and shape and empties appropriately. Impression: Left millimeter nonobstructing left renal calculus. Signed by: Tyler Toussaint MD on 08/16/2022 5:03 PM Final 08/17/2022 40 [facility] MRI Lumbar Spine WO Contrast History: Low back pain. Technique: Utilizing the [employer] 1.5 Priya wide bore system sagittal and axial T1 and T2-weighted images of the lumbar spine were obtained. Findings: Lumbar vertebral body height and alignment are normal without significant marrow signal abnormality. The distal cord and conus medullaris are normal. L1-2 and L2-3: No significant disc disease. Canal and foramina are widely patent. L3-4: Desiccated slightly bulging disc results in no significant canal or foraminal narrowing. L4-5: Desiccated bulging disc eccentric to the right results in mild lateral recess stenosis with displacement but no compression of the transiting right L5 nerve root in the lateral recess. Disc interspace the foramen to elevate but not compress the exiting right L4 nerve root with some residual perineural fat L5-S1: Desiccated bulging disc with small midline protrusion. There is thecal sac abutment and slight distortion. There is a superimposed small left paracentral disc protrusion, image 6 series 2 and image 24 series 5. This protrusion abuts and displaces the origin of the left S1 nerve root but does not compress that structure. Impression: L5-S1 discopathy includes small left paracentral protrusion displacing but not compressing the origin of the left S1 nerve root. Symptomatic correlation is suggested. L4-5 discopathy includes rightward eccentric disc bulge that both displaces the right L5 nerve root in the lateral recess and right L4 nerve root in the foramen but does not compress dose structures. Symptomatic correlation is suggested. Signed by: Fawad Caldwell MD on 12/30/2021 8:46 AM Final 12/30/2021 [facility] ED Depart Summary [facility] Emergency Department Depart Summary PERSON INFORMATION Name ROBERT CHATMAN Age 65 Years 1955 Sex Male Language Yi PCP MD SHARMAINE Marital Status Visit Id Visit Reason Vomiting; VOMITING/DIARRHEA Specialty Enc Type Emergency Med Service Emergency Medicine Referred by Track Group 40 ED Tracking Group Discharge 07/29/2021 12:48:00 Arrival Mode Walk-In Tracking Id [id number] Checkout 07/29/2021 12:48:00 Transport 07/29/2021 09:09:25 Acuity 3-Urgent Dispo Type Home or Self Care Arrival 07/29/2021 09:09:00 Reg Status Complete LOS 000 03:39 Address: [address] [place] [address] [id number] PROVIDER INFORMATION Providers Role Assigned Unassigned Cinthya Webb ED Physician 07/29/2021 09:15 AM VITALS INFORMATION Vital Sign Triage Latest Temperature Temp Site Temporal Temporal Pulse Rate 96 bpm 78 bpm Respiratory Rate 18 br/min 17 br/min Blood Pressure 109 mmHg/ 73 mmHg 115 mmHg/ 69 mmHg EVENTS INFORMATION Event Name Event Status Request Date/Time Start Date/Time Complete Date/Time Arrive Complete 07/29/2021 09:09:00 07/29/2021 09:09:00 07/29/2021 09:09:00 Bands and Labels Complete 07/29/2021 09:09:00 07/29/2021 09:09:35 07/29/2021 09:09:35 FCT Request 07/29/2021 09:09:00 MSE Needed Complete 07/29/2021 09:09:00 07/29/2021 09:18:26 07/29/2021 09:18:26 To ED Bed Request 07/29/2021 09:09:00 Triage Complete 07/29/2021 09:09:00 07/29/2021 09:15:23 07/29/2021 09:15:23 Door To Doc Complete 07/29/2021 09:15:33 07/29/2021 09:15:33 07/29/2021 09:15:33 MSEI MD/PA/ROPING TENDER Complete 07/29/2021 09:18:26 07/29/2021 09:18:26 07/29/2021 09:18:26 Fin Reg Complete 07/29/2021 09:18:26 07/29/2021 09:37:49 07/29/2021 09:37:49 Proxy One Complete 07/29/2021 09:18:26 07/29/2021 09:18:26 07/29/2021 09:18:26 Lab Draw Request 07/29/2021 09:28:37 EKG Complete 07/29/2021 09:28:49 07/29/2021 09:35:50 Stop at Registration Complete 07/29/2021 09:37:31 07/29/2021 09:37:31 07/29/2021 11:58:01 Discharge Request 07/29/2021 12:40:01 LOCATION INFORMATION Arrival Nurse Unit Room Bed 07/29/2021 09:09:00 ER-LM WR 07/29/2021 12:48:00 ER-LM Depart ORDERS INFORMATION MEDICAL INFORMATION Allergy Info: Phenergan Medications New Medications ondansetron (Zofran 4 mg oral tablet) 1 Tabs Oral EVERY 6 HOURS as needed Nausea/Vomiting. Refills: 0. Medications to Continue Taking That Have Changed None Medications to Continue with No Changes None No Longer Take the Following Medications None Contact Your Physician Prior to Taking the Following Medications None DISCHARGE INFORMATION Discharge Disposition: Home or Self Care Discharge Location: PATIENT EDUCATION INFORMATION Instructions: Gastroenteritis, Viral (Adult) Follow up: With: Address: When: Primary Care Provider Within 3-5 days Comments: Stay well-hydrated and take Zofran as prescribed. Follow up with your family doctor within 3-5 days. Return to the emergency department for abdominal pain, inability to tolerate oral fluids, or any other new or worsening symptoms. [id number] Male 07/29/2021 [facility] ED Physician Notes Patient: JONNY CHATMAN Age: 65 years Legal Sex: MALE : 1955 Chief Complaint N/V/D starting at 0300. Negative covid test at Dr Reyes's office this morning. Mode of Arrival Walk-In History of Present Illness 65-year-old male with history of Crohn's disease presents to emergency department for nausea, vomiting, and diarrhea and onset 0300 this morning. Patient reports at 0300 he started having watery, non-bloody diarrhea and non-bloody, non-bilious emesis. He states he has had about 10 episodes of diarrhea and a similar number of episodes of emesis. Patient has also been feeling achy and fatigued. Denies fevers, abdominal pain, and urinary symptoms. He states his Crohn's disease is well controlled on Stelara and this do not feel like a flare up. Last night patient have take out steak for dinner. No sick contacts. He was initially seen by Dr. Reyes this morning where he tested negative for COVID. Patient's blood pressure was 80s/50s and Dr. Reyes recommended they come to the ED. He has received 3 doses of the [email or web address] COVID-19 vaccine. Review of Systems With the exception of those mentioned in the history of present illness and here, all other systems reviewed and reported as negative. Constitutional: No fevers or chills. +fatigue HEENT: No congestion or rhinorrhea. Respiratory: No shortness of breath or cough. Cardiovascular: No chest pain. Gastrointestinal: No abdominal pain, constipation. +nausea, +vomiting, +diarrhea Genitourinary: No urinary symptoms. Musculoskeletal: No trauma. +body aches Skin: No rash. Neurologic: No headache. Psychiatric: No suicidal ideation or homicidal ideation. Lymphatic: No lymphadenopathy. Physical Exam Triage Vital Signs T: 36.6 C HR: 96 RR: 18 BP: 109/73 SPO2: 96% HT: 167.6 cm WT: 81.5 kg(Dose Calc Wt.) WT: 81.5 kg BMI: 29.01 kg/m2 GENERAL: In general the patient is awake, interactive, in an emergency department gurney. HEADS/EYES/EARS/NOSE/THROAT: Atraumatic, normocephalic, mucus membranes are moist, trachea is midline, normal conjunctiva. CARDIOVASCULAR: Regular rate and regular rhythm, no murmurs, normal peripheral pulses in all extremities, normal capillary refill. CHEST/PULMONARY: Normal chest rise and fall, good air movement, clear to auscultation bilaterally. ABDOMEN: Soft, nontender, nondistended, no mass appreciated. Bowel sounds present. BACK: Normal range of motion without pain. NEUROLOGICAL: Alert and oriented x4, GCS 15, moves all extremities without limitations or weakness, cranio-facial features are symmetric. EXTREMITY: No visible deformities, joint swellings, or signs of trauma over the long bones or large joints of the bilateral upper and lower extremities. SKIN: Warm, dry, well perfused, no jaundice, no rash. PSYCH: Calm, cooperative. ED Course Differential Diagnosis SBO, Gastroenteritis, gastritis, appendicitis, pancreatitis, torsion, ICH, meningitis, vertigo, mass lesion, Tox, Pyelonephritis,cyclic vomiting, Cannibis hyperemesis, among others. Orders Normal Saline 0.9% Bolus, 1,000 mL, IV Hydration Bolus, ONCE Normal Saline 0.9% Bolus, 1,000 mL, IV Hydration Bolus, ONCE Ofirmev, 1,000 mg, 100 mL, IVPB, ONCE Zofran, 4 mg, 2 mL, IV PUSH, ONCE Zofran, 4 mg, 2 mL, IV PUSH, ONCE Diagnostics ECG: The patient had an EKG ordered, reviewed, and interpreted by me while the patient was actively inside the emergency department actively receiving diagnostic evaluation. EKG was medically necessary. Time: 09:35 - ECG reviewed by ED physician and is notable for rate of 75 BPM, VA int: 161 ms, QRS dur: 109 ms, QTc: 390 ms. Impression: Sinus rhythm. Nonspecific T wave inversions. No ST changes. Re-evaluation 07/29/2021 11:38 PST - Vomiting under control after medication. 07/29/21 12:20 - HR: 78 RR: 17 BP: 115/69 SPO2: 96% O2 Delivery: Room air Medical Decision Making 65 y/o male hx Crohn's disease sent in by PCP for vomiting and diarrhea. He is afebrile, VSS. BP is 109/73 in ED. Abdomen is soft, nontender. Patient not complaining of pain and states this is not consistent with Crohn's flare. Labs obtained and show WBC 11.9, hgb 15.4, BUN 22, creatinine 1.44 (prior 1.30 01/2021). Patient with negative covid this morning. UA without evidence of infection. He was given 2L fluids, zofran and felt improved. Patient toleration PO. Repeat BP stable. Stable for dc with rx Zofran. RTED precautions given for new or worsening symptoms. Diagnosis 1. Gastroenteritis (Noninfective gastroenteritis and colitis, unspecified, K52.9) Condition Improved Disposition Discharge to Home DISCHARGE DISPOSITION: Emergency Department nursing documentation was reviewed including triage complaint, associated symptoms, administration of medications, response to therapy and vital signs. Given the history, physical exam, and review of any performed laboratory and imaging studies the patient is being discharged in stable condition. I advised the patient to followup with their outpatient provider for further diagnostic testing and treatments as needed. Additional verbal discharge instructions as well as return precautions were reviewed with the patient, and the patient is in agreement with the plan. DRAGON DICTATION NOTE: A portion of this chart was dictated with computerized voice recognition software. Although this document is reviewed, there is a potential of word recognition, typographic or syntax errors. Prescriptions Prescribed Medications 07/29/2021 12:14 PST Zofran 4 mg oral tablet, = 1 Tab, ORAL, Q6H, PRN Nausea/Vomiting, # 12 Tab, 0 Refill(s), Soft Stop Patient Education Gastroenteritis, Viral (Adult) Follow-Up Provider: Primary Care Provider Date: Within 3-5 days Comment: Stay well-hydrated and take Zofran as prescribed. Follow up with your family doctor within 3-5 days. Return to the emergency department for abdominal pain, inability to tolerate oral fluids, or any other new or worsening symptoms. Quality Measures Scribe attestation: Holly Milligan scribing for and in the presence of Dr. Cinthya Webb MD.07/29/2021 09:18 PST Signed by: Holly Renteria 07/29/2021 09:18 PST Provider attestation: I, Dr. Cinthya Webb MD personally performed the services described in the documentation, reviewed the documentation reported by the scribe in my presence and accurately and completely records my words and actions. MSEI Information MSEI MD/ROPING TENDER/PA Time Patient Seen face to face: Date and time 07/29/2021 09:18:26 Past Medical History Crohn's disease Reviewed as documented in chart. Past Surgical History Abdominal resections Reviewed as documented in chart. Allergies Phenergan (Uncertain) Home Medications No active home medications Social History Reviewed and non-contributory. Family History Reviewed and non-contributory. Lab Results Labs All 24H Lab Results Date Lactic Acid Level 1.6 mmol/L 07/29/21 09:50 PST Procalcitonin Level 0.45 ng/mL 07/29/21 09:50 PST GFR - Non 49 mL/min/1.73m2 (LOW) 07/29/21 09:50 PST GFR - 60 mL/min/1.73m2 07/29/21 09:50 PST Auto Neutrophil Percent 88.6 % (HIGH) 07/29/21 09:50 PST Auto Neutrophil Absolute 10.6 K/uL (HIGH) 07/29/21 09:50 PST Auto Lymphocyte Percent 3.2 % (LOW) 07/29/21 09:50 PST Auto Lymphocyte Absolute 0.4 K/uL (LOW) 07/29/21 09:50 PST Auto Monocyte Percent 7.7 % 07/29/21 09:50 PST Auto Monocyte Absolute 0.9 K/uL (HIGH) 07/29/21 09:50 PST Auto Basophil Percent 0.1 % (LOW) 07/29/21 09:50 PST Auto Basophil Absolute 0.0 K/uL 07/29/21 09:50 PST Auto Eosinophil Percent 0.4 % 07/29/21 09:50 PST Auto Eosinophil Absolute 0.0 K/uL 07/29/21 09:50 PST Urine Culture Y/N No - 07/29/21 11:09 PST WBC 11.9 K/uL (HIGH) 07/29/21 09:50 PST RBC 4.76 M/uL 07/29/21 09:50 PST HGB 15.4 gm/dL 07/29/21 09:50 PST HCT 45.7 % 07/29/21 09:50 PST MCV 96.0 fL 07/29/21 09:50 PST MCH 32.5 pg 07/29/21 09:50 PST MCHC 33.8 gm/dL 07/29/21 09:50 PST RDW 15.6 % 07/29/21 09:50 PST PLT 173 K/uL 07/29/21 09:50 PST MPV 8.7 fL 07/29/21 09:50 PST Sodium Level 138 mmol/L 07/29/21 09:50 PST Potassium Level 4.2 mmol/L 07/29/21 09:50 PST Chloride Level 103 mmol/L 07/29/21 09:50 PST CO2/Carbon Dioxide 25 mmol/L 07/29/21 09:50 PST Anion Gap 10 mmol/L (LOW) 07/29/21 09:50 PST Glucose, Random 113 mg/dL (HIGH) 07/29/21 09:50 PST BUN 22 mg/dL (HIGH) 07/29/21 09:50 PST Creatinine 1.44 mg/dL (HIGH) 07/29/21 09:50 PST BUN/Creat Ratio 15.3 - 07/29/21 09:50 PST Osmolality, Calculated 290 mOsm/kg 07/29/21 09:50 PST Calcium Level 9.4 mg/dL 07/29/21 09:50 PST Magnesium Level 1.7 mg/dL (LOW) 07/29/21 09:50 PST Total Protein 7.6 gm/dL 07/29/21 09:50 PST Albumin Level 4.5 gm/dL 07/29/21 09:50 PST Globulin Level 3.1 gm/dL 07/29/21 09:50 PST A/G Ratio 1.45 - 07/29/21 09:50 PST Bilirubin, Total 0.8 mg/dL 07/29/21 09:50 PST AST 28 IntUnit/L 07/29/21 09:50 PST ALT 27 IntUnit/L 07/29/21 09:50 PST ALP 55 IntUnit/L 07/29/21 09:50 PST Lipase Level 26 units/L 07/29/21 09:50 PST UA - Source/Collect Type Urine Clean Cat 07/29/21 11:09 PST UA - Color Yellow - 07/29/21 11:09 PST UA - Appearance Clear - 07/29/21 11:09 PST UA - Specific [place] 1.021 - 07/29/21 11:09 PST UA - pH 6.0 - 07/29/21 11:09 PST UA - Protein Negative mg/dL 07/29/21 11:09 PST UA - Glucose Negative mg/dL 07/29/21 11:09 PST UA - Ketones Trace mg/dL (ABNORMAL) 07/29/21 11:09 PST UA - Bilirubin Negative - 07/29/21 11:09 PST UA - Blood Negative - 07/29/21 11:09 PST UA - Urobilinogen 0.2 EUnits/dL 07/29/21 11:09 PST UA - Nitrites Negative - 07/29/21 11:09 PST UA - Leukocyte Esterase Negative - 07/29/21 11:09 PST UA - WBC < 2 /HPF 07/29/21 11:09 PST UA - RBC < 4 /HPF 07/29/21 11:09 PST UA - Epithelials, Squamous None Seen /HPF 07/29/21 11:09 PST UA - Bacteria None Seen /HPF 07/29/21 11:09 PST UA - Casts, Hyaline Few /HPF 07/29/21 11:09 PST [id number] Male 07/29/2021 [facility] Vital Signs Vital Sign Value Date Comments Source Systolic BP 115 mm[Hg] 07/29/2021 40 [facility] Diastolic BP 69 mm[Hg] 07/29/2021 40 [facility] Peripheral Pulse Rate 78 bpm 07/29/2021 40 [facility] Peripheral pulse site Pulse oximetry dev ice (07/29/21 12:20 PM) 07/29/2021 40 [facility] Respiratory rate 17 br/min 07/29/2021 40 [facility] Pulse Oximetry 96 % 07/29/2021 40 [facility] Pulse oximetry method Continuous ( 12:20 PM) 07/29/2021 40 [facility] Oxygen delivery Room air (07/29/21 12:20 PM) 07/29/2021 40 [facility] Activity with SPO2 monitoring At rest (07/29/21 12:20 PM) 07/29/2021 40 [facility] Temperature (C) 36.6 Teresita 07/29/2021 40 [facility] Peripheral Pulse Rate 96 bpm 07/29/2021 40 [facility] Respiratory rate 18 br/min 07/29/2021 40 [facility] Systolic BP 109 mm[Hg] 07/29/2021 40 [facility] Diastolic BP 73 mm[Hg] 07/29/2021 40 [facility] Pulse Oximetry 96 % 07/29/2021 40 [facility] Weight (kg) 81.5 kg 07/29/2021 40 [facility] Weight measured method Standing scale (07/29/21 9:12 AM) 07/29/2021 40 [facility] Dose calculation weight (kg) 81.5 kg 07/29/2021 40 [facility] HeightLength (cm) 167.6 cm 07/29/2021 40 [facility] Body Mass Index 29.01 kg/m2 07/29/2021 40 [facility] [place] Body Weight Calculated 63.764 07/29/2021 40 [facility] Encounters Location Location Details Encounter Type Encounter Number Reason For Visit Attending Provider ADM Date DC Date Status Source 40 40 [facility] Outpatient [id number] BAGGIE Marcello Reyes 01/22 Active [facility] 40 40 [facility] Outpatient [id number] abdomina l pain Marcello Reyes 04/19 Active [facility] 40 40 [facility] Emergency [id number] VOMITING /DIARRHE A Cinthya Philiponis 07/29 Active [facility] 40 40 [facility] Outpatient [id number] lbp Marcello Amy 11/26 Active [facility] Outpatient [id number] Radiculo enio Marcello Reyes 12/30 Active [facility] 40 40 [facility] Outpatient [id number] Kidney Stone Marcello Reyes 08/17 Active [facility] 40 40 LM Outpatient [id number] Marcello Reyes 10/21 Active [facility] 40 40 [place] Outpatient [id number] E03.9 Marcello Reyes 10/31 Active [facility] 40 40 LM Outpatient [id number] Marcello Reyes 11/25 Active [facility] 40 40 LM Outpatient [id number] I43.0, K50.90, D50.9, Z86.2, N18.2, D69.2, I10 Marcello Reyes 04/21 Active [facility] 40 40 LMH Recurring [id number] M51.17 Mauritex Vogel 09/15 Active [facility] 40 40 LM Outpatient [id number] LAB E29.1/I7 7.9/I10/ E11.9/E7 8.00/E03 .9/R7989 Marcello Reyes 10/24 Active [facility] 40 40 LM Outpatient [id number] Marcello Reyes 10/24 Active [facility] 40 40 LM Outpatient [id number] LAB E78.2 E53.8 D64.9 R53.83 Z12.5 E55.9 Kash Wills 11/28 Active [facility] 40 40 [facility] Outpatient [id number] LAB Z79.52 E78.2 Kash Wills 01/06 Active [facility] Procedures Procedure Code Date Perfomer Comments Source ROUTINE VENIPUNCTURE [id number] 01/06/2025 40 [facility] ROUTINE VENIPUNCTURE [id number] 11/28/2024 40 [facility] ROUTINE VENIPUNCTURE [id number] 10/25/2023 40 [facility] ROUTINE VENIPUNCTURE 86290 10/25/2023 40 [facility] ROUTINE VENIPUNCTURE 60236 11/25/2022 40 [facility] ROUTINE VENIPUNCTURE [id number] 10/21/2022 40 [facility] ROUTINE VENIPUNCTURE [id number] 10/21/2022 40 [facility] ROUTINE VENIPUNCTURE [id number] 07/29/2021 40 [facility] ROUTINE VENIPUNCTURE 80506 01/22/2021 40 [facility] Plan of Care Plan of Care Date Source Diagnostic Tests PendingproB rain Natriuretic Peptide NT 10/25/23 10/26/2023 40 [facility] orial Social History Social History Date Source Social History TypeResponse Sex Male Sex Representation Male (finding) 01/07/2025 40 [facility] orial Social History TypeResponse Sex Male Sex Representation Male (finding) 01/07/2025 40 [facility] orial Social History TypeResponse Sex Male Sex Representation Male (finding) 01/07/2025 40 [facility] orial Social History TypeResponse Sex Male Sex Representation Male (finding) 01/06/2025 [facility] Social History TypeResponse Sex Male Sex Representation Male (finding) 01/06/2025 [facility] Social History TypeResponse Sex Male Sex Representation Male (finding) 11/29/2024 40 [facility] orial Social History TypeResponse Sex Male Sex Representation Male (finding) 11/29/2024 40 [facility] Social History TypeResponse Sex Male Sex Representation Male (finding) 11/29/2024 40 [facility] Social History TypeResponse Sex Male Sex Representation Male (finding) 11/28/2024 [facility] Social History TypeResponse Sex Male 40 [facility] Social History TypeResponse Sex Male 40 [facility] Social History TypeResponse Sex Male 40 [facility] Social History TypeResponse Sex Male 40 [facility] Social History TypeResponse Sex Male 40 [facility] Social History TypeResponse Sex Male 40 [facility] Social History TypeResponse Sex Male 40 [facility] Social History TypeResponse Sex Male 40 [facility] Social History TypeResponse Sex Male [facility] Social History TypeResponse Sex Male [facility] Social History TypeResponse Sex Male 40 [facility] Social History TypeResponse Sex Male 40 [facility] Social History TypeResponse Sex Male 40 [facility] Social History TypeResponse Sex Male 40 [facility] Social History TypeResponse 01/23/2021 40 [facility]
--- NOTE | 2025-02-25 13:07 | ED.EXTPRO ---
HPI - Extremity Problem General Chief complaint: Extremity Problem,Nontraumatic Stated complaint: r/o LLE DVT Time Seen by Provider: 02/25/25 11:53 History of Present Illness HPI Narrative: Patient is a 69-year-old male who presents to the ER with left leg/calf pain. He reports he was driving their motor home on Monday afternoon when he started experiencing the sensation. Patient reports he has a history of blood clots in the past, along with Crohn's and sciatica. He reports he just wanted to make sure he did not have another blood clot. Patient reports he has been taking Tylenol for pain relief and it has been helping. He denies any shortness of breath, chest pain, numbness and tingling in left foot. Related Data Allergies Allergy/AdvReac Type Severity Reaction Status Date / Time No Known Allergies Allergy Verified 02/25/25 11:02 Review of Systems Review of Systems: All systems reviewed & are unremarkable except as noted in HPI and below Exam Narrative: GENERAL: Well appearing, well-nourished, non-toxic, in no acute distress. HEAD: Normocephalic, atraumatic. NECK: Supple. No adenopathy, no masses. RESPIRATORY: Airway patent, respirations nonlabored. Clear to auscultation bilaterally, no rales, rhonchi, wheezing. CARDIOVASCULAR: Regular rate and rhythm without murmurs, rubs, or gallops. Peripheral pulses 2+ and equal bilaterally. ABDOMINAL: Soft, nontender, nondistended, no hepatosplenomegaly. Normoactive BS. MUSCULOSKELETAL: Moves all extremities. Strength/ROM intact without gross deformities. -Homans sign SKIN: Warm, dry, normal color. No rashes. NEURO: A&O X3. Speech clear. Cranial nerves II-XII intact. No ataxic movements. PSYCHIATRIC: Appropriate mood and affect. Normal interaction. Course Vital Signs Vital signs: Vital Signs Temperature 36.6 C 02/25/25 10:47 Pulse Rate 71 02/25/25 10:47 Respiratory Rate 16 02/25/25 10:47 Blood Pressure 120/70 02/25/25 10:47 Pulse Oximetry 99 02/25/25 10:47 Oxygen Delivery Room Air 02/25/25 10:47 Temperature 36.6 C 02/25/25 10:47 Pulse Rate 71 02/25/25 10:47 Respiratory Rate 16 02/25/25 10:47 Blood Pressure 120/70 02/25/25 10:47 Pulse Oximetry 99 02/25/25 10:47 Oxygen Delivery Room Air 02/25/25 10:47 MDM - Extremity (Nontraumatic) MDM Narrative Medical decision making narrative: Patient is a 69-year-old male who presents to the ER with left leg/calf pain. He reports he was driving their motor home on Monday afternoon when he started experiencing the sensation. Patient reports he has a history of blood clots in the past, along with Crohn's and sciatica. He reports he just wanted to make sure he did not have another blood clot. Patient reports he has been taking Tylenol for pain relief and it has been helping. He denies any shortness of breath, chest pain, numbness and tingling in left foot. Labs Ordered: None necessary Imaging Ordered: Left venous ultrasound Medications Ordered: Tylenol p.o. Results: Patient's venous Doppler study indicates The common femoral, superficial femoral and popliteal veins demonstrate normal respiratory variation, augmentation and compressibility. Color flow is also seen within the posterior tibial, peroneal, greater saphenous and profunda veins. Diagnosis: Left calf strain Patient Education/Shared MDM: Results of imaging shared with patient. He is requesting Tylenol prior to discharge. Patient strongly advised to follow-up with their PCP as soon as possible. He will not be discharged home with any new prescriptions. Patient verbalizes understanding of signs/symptoms associated with DVTs or PEs, and verbalizes he knows when to return for further evaluation. Strict return precautions provided. Patient verbalized understanding and is in agreement with plan. Vital signs stable at time of discharge. All questions answered. Differential Diagnosis Differential diagnosis: Likely cellulitis, lower extremity edema and deep vein thrombosis of lower extremity Discharge Plan Discharge Clinical Impression: Strain of left calf muscle, Pain of left calf Patient Disposition: Home Condition: Stable Instructions: Antibiotic Form, Leg Pain (ED) Additional Instructions: Please return to the ER with any worsening symptoms. Follow-up with primary care provider as needed. Take all medications as prescribed, including regularly scheduled medications. You may use Tylenol as needed at home for pain control. Patient Language: Malagasy Follow-up/Referrals: UNKNOWN,DOCTOR [Primary Care Provider] - Time of Disposition: 13:14
[2025-02-25] MEDS: ACETAMINOPHEN 500 MG TABLET 1000 MG PO (13:18)
[2025-02-25 13:22] VITALS: BP 118/68; PULSE 85; RESP 14; TEMP 36.9; O2SAT 99
== END 2025-02-25 13:24 | disposition home or self-care (01) ==
PROVIDERS: Emergency Provider Registered Nurse
DX: S86.912A Strain of unspecified muscle(s) and tendon(s) at lower leg level, left leg, initial encounter (principal); K50.90 Crohn's disease, unspecified, without complications; Z86.718 Personal history of other venous thrombosis and embolism; X58.XXXA Exposure to other specified factors, initial encounter
CPT/HCPCS: 93971; 99284; A9270